=== PATIENT | male | born 1985 | race Caucasian/White ===

== ENCOUNTER 2017-02-22 13:50 | Inpatient (IN) | payer BC, OTHER ==
[~2017-02-22] VITALS: Ht 175.3 cm; Wt 68.0 kg
--- NOTE | 2017-02-22 20:10 | NUR ---
INTAKE ASSESSMENT NOTE BP: 114/77, HR: 76, RR:16, SpO2: 96% T: 97.4, Pain: stomach cramps 7/10. Pt is stable and clear to come onto the unit. Unit protocols were explained regarding medications and vital signs Q4H. Pt verbalized understanding. Will monitor.
[2017-02-22 20:30] VITALS: BP 114/77
--- NOTE | 2017-02-22 20:30 | NUR ---
ADMISSION NOTE Ht: 5'9" Wt: 150 lbs COWS:10, CIWA:7 Pt arrived ambulatory from [facility] Intake to the third floor accompanied by a MERCHANDISING EXECUTION ASSOCIATE at 2017. Pt is a 31 year old male admitted on 02/22/17 for ETOH, Benzo, Heroin and Meth dependency. Pt is full code with NKA. He reports a PMHx of anxiety, depression and shoulder surgery 7 years ago. He is a cigarette smoked of 13 years and reports smoking 15 cigarettes per day. He denies any history of seizures. He reports he has a PCP named Dr. Nettles located in [place], [place]. Pt arrived with supplements and OTC medications. All meds reconciled. He reports his longest period of sobriety was in July 2016 for 48 days. Pt verbalized his last time sober was one month ago for four days. He was recently at [facility] 1.5 months ago for 4 days and then relapsed. He describes his current use as: 1. ETOH ( 6 pack mickeys beer) daily for 1.5 months Last dose: 2 beers on 02/21/17 2. Klonopin 6 mg daily for 1.5 months. Last dose: 2 mg on 02/21/17 3. Heroin IV 3 grams daily for 1.5 months Last dose: 1.5 gram on 02/21/17 4. Methamphetamine IV 0.25 grams daily for 1.5 months Last dose: 0.25 gram IV on 02/21/17 He reports his withdrawal symptoms as: " nausea, stomach cramps, body aches, runny nose and watery eyes." Upon assessment, pt is alert and oriented x4, calm and cooperative. Noted with abdominal cramps, nausea, runny nose, moist eyes and diaphoresis. Speech is soft and audible. Heart rate regular. Pt denies chest pain or SOB. PERRLA, breathing is even and unlabored, lung sounds clear. Abdomen is soft and non distended, bowel sounds present. Last BM (02/21/17) Pt reports BM is regular. Pt's skin is warm dry and intact. Noted with track amos on left lateral forearm. Dry and intact, no bleeding or swelling noted. Also noted with superficial scratches on face related to skin picking. MD aware of pt's admission. Pt oriented to room and unit. Pt safe with bed locked in lowest position, side rails up x2 and call light within reach. Will continue to monitor.
[2017-02-22 20:48] LABS: *AMPHETAMINE, URINE POSITIVE (NEGATIVE); *BARBITURATE, URINE NEGATIVE (NEGATIVE); *CANNABINOID, URINE NEGATIVE (NEGATIVE); *COCCAINE, URINE NEGATIVE (NEGATIVE); *OPIATE, URINE POSITIVE (NEGATIVE); *PHENCYCLIDINE SCREEN,URINE NEGATIVE (NEGATIVE)
[2017-02-22] MEDS ORDERED: MIRALAX 17 GM POWD.PACK PO PRN (21:30)
[2017-02-22] MEDS ORDERED: LORAZEPAM 2 MG/1 ML VIAL IM PRN (21:30)
[2017-02-22] MEDS ORDERED: ACETAMINOPHEN 325 MG TABLET PO PRN (21:30)
[2017-02-22] MEDS ORDERED: METHOCARBAMOL 750 MG TABLET PO PRN (21:30)
[2017-02-22] MEDS ORDERED: MAGNESIUM HYDROXIDE 30 ML LIQUID UDC PO PRN (21:30)
[2017-02-22] MEDS ORDERED: LOPERAMIDE HCL 2 MG CAPSULE PO PRN ×2 (21:30)
[2017-02-22] MEDS ORDERED: BUPRENORPHINE HCL 2 MG TAB.SUBL SL PRN (21:30)
[2017-02-22] MEDS ORDERED: HYDROXYZINE PAMOATE 25 MG CAPSULE PO PRN (21:30)
[2017-02-22] MEDS ORDERED: ONDANSETRON 4 MG/2 ML VIAL IM PRN (21:30)
[2017-02-22] MEDS ORDERED: THIAMINE HCL 200 MG/2 ML VIAL IM ONE (21:30)
[2017-02-22] MEDS ORDERED: IBUPROFEN 600 MG TABLET PO PRN (21:30)
[2017-02-22] MEDS ORDERED: CLONIDINE HCL 0.1 MG TABLET PO PRN (21:30)
[2017-02-22] MEDS ORDERED: LORAZEPAM 1 MG TABLET PO PRN ×2 (21:30)
[2017-02-22] MEDS ORDERED: DICYCLOMINE HCL 20 MG TABLET PO PRN (21:30)
[2017-02-22] MEDS: ONDANSETRON ODT 4 MG TAB.RAPDIS SL PRN (21:48)
[2017-02-22] MEDS ORDERED: LORAZEPAM 1 MG TABLET ONE (21:48)
[2017-02-22] MEDS ORDERED: ONDANSETRON ODT 4 MG TAB.RAPDIS ONE (21:49)
--- NOTE | 2017-02-22 21:50 | NUR ---
PRN ZOFRAN, ONE TIME ORDERS SUBUTEX and ATIVAN Pt complains of nausea. Pt noted with diaphoresis, runny nose, moist eyes, abdominal cramps, and anxiety. COWS:10, CIWA:7. PRN Zofran administered as ordered. One time order of Subutex 4 mg and Ativan 2 mg administered as ordered. Breathing even and unlabored. Will continue to monitor effectiveness of medications.
[2017-02-22 21:52] LABS: BASOPHILS # (AUTO) 0.2 K/uL (0.0-8.0); BASOPHILS % (AUTO) 2.5 % (0.0-2.0); EOSINOPHILS # (AUTO) 0.4 K/uL (0.0-0.7); EOSINOPHILS % (AUTO) 4.2 % (0.0-7.0); HEMATOCRIT 40.3 % (40-50); HEMOGLOBIN 13.7 G/DL (14.0-18.0); LYMPHOCYTES # (AUTO) 1.9 K/uL (20.0-40.0); MEAN CORPUSCULAR HEMOGLOBIN 29.2 UUG (27.0-31.0); MEAN CORPUSCULAR HGB CONC 34 g/dL (32.0-37.0); MONOCYTES % (AUTO) 11.1 % (0.0-11.0); NEUTROPHILS # (AUTO) 5.1 K/uL (1.8-8.9); NEUTROPHILS % (AUTO) 60.2 % (38.5-71.5); PLATELET COUNT (AUTO) 169 K/UL (150-450); RED BLOOD CELL COUNT(AUTO) 4.68 MIL/UL (4.7-6.1); RED CELL DISTRIBUTION WIDTH 13.2 % (11.5-14.5); WHITE BLOOD COUNT (AUTO) 8.6 K/UL (4.0-11.2)
[2017-02-22] MEDS ORDERED: LORAZEPAM 1 MG TABLET PO SCH (22:00)
[2017-02-22] MEDS ORDERED: BUPRENORPHINE HCL 2 MG TAB.SUBL SL SCH (22:00)
[2017-02-22 22:03] LABS: ETHANOL < 3 MG/DL (0-0)
[2017-02-22 22:07] LABS: ALANINE AMINOTRANSFERASE 25 U/L (16-63); ALBUMIN 3.3 g/dL (3.4-5.0); ALKALINE PHOSPHATASE 136 U/L (50-136); ASPARTATE AMINOTRANSFERASE 21 U/L (15-37); BILIRUBIN,TOTAL 0.3 mg/dL (0.2-1.0); CALCIUM 8.7 mg/dL (8.5-10.1); CARBON DIOXIDE 31 mmol/L (21-32); CHLORIDE 102 mmol/L (98-107); CREATININE 0.8 mg/dL (0.6-1.3); GFR 114 mL/min (>60); GLUCOSE 86 mg/dL (74-106); MAGNESIUM 1.8 mg/dL (1.8-2.4); POTASSIUM 4.4 mmol/L (3.5-5.1); SODIUM SERUM 138 mmol/L (136-145); TOTAL PROTEIN, SERUM 6.5 g/dL (6.4-8.2); UREA NITROGEN, BLOOD 8 mg/dL (7-18)
[2017-02-22 22:28] LABS: THYROID STIMULATING HORMONE 0.365 mIU/mL (0.358-3.740)
[2017-02-22 22:29] LABS: HIV-1 p24 ANTIGEN NON REACTIVE (NONREACTIVE); HIV-1/2 ANTIBODY NON REACTIVE (NONREACTIVE)
--- NOTE | 2017-02-22 22:50 | NUR ---
REASSESSMENT Pt reports decrease in nausea, anxiety and withdrawal symptoms. Medications effective as evidenced by decrease in COWS to 8 and CIWA to 6. Breathing even and unlabored. Respirations 16. Will continue to monitor.
[2017-02-23] VITALS: BP 114/72
--- NOTE | 2017-02-23 | NUR ---
COWS/CIWA DEFERRED COWS and CIWA deferred d/t order is Q4H while awake. Pt lying in bed with eyes closed noted to be asleep. Respirations 16, breathing is even and unlabored. Safety measures in place. Will continue to monitor.
[2017-02-23] MEDS ORDERED: CALC500T13 PO (00:27)
[2017-02-23] MEDS ORDERED: DOCU-170 PO (00:27)
[2017-02-23] MEDS ORDERED: NICO1PAT10 TP (00:30)
[2017-02-23] MEDS ORDERED: NA P133E4 RC (00:32)
[2017-02-23] MEDS ORDERED: GLYC15DR OP (00:32)
[2017-02-23] MEDS ORDERED: [UNRECOGNIZED DRUG - OTHER] TP (00:32)
[2017-02-23] MEDS ORDERED: BETA2500 PO (00:33)
[2017-02-23] MEDS ORDERED: MULT-1045 PO (00:34)
[2017-02-23] MEDS ORDERED: ERYT3.5O24 EACHEYE (00:38)
[2017-02-23] MEDS ORDERED: [UNRECOGNIZED DRUG - OTHER] (00:44)
[2017-02-23] MEDS ORDERED: NEOM28.3 TP (00:49)
[2017-02-23] MEDS ORDERED: DIPH28.33 TP (00:49)
[2017-02-23 04:00] VITALS: BP 101/65
--- NOTE | 2017-02-23 07:11 | NUR ---
END OF SHIFT Pt is a 31 year old male admitted on 02/22/17 for ETOH, Benzo, Heroin and Meth dependency. Pt is full code with NKA. He will start a 5 day Ativan and 5 day Subutex taper today 02/23/17. At 2150 pt received PRN Zofran and one time order of Ativan and Subutex. Medications were effective in relieving his withdrawal symptoms. He was able to sleep a total of 6 hrs, Intake: 650 mL, Void: x2, BM: 0, COWS:8, CIWA:6. Pt is alert and oriented x4, breathing is even and unlabored. Pt safe with bed locked in lowest position, side rails up x2 and call light within reach. Endorsed to oncoming nurse.
--- NOTE | 2017-02-23 07:20 | NUR ---
Start of shift note Pt was admitted for benzo, ETOH and opiate dependence and methamphetamine use. Pt has a PMHx of anxiety, depression and a shoulder surgery 7 years ago. Pt relapsed 1.5 months ago. Pt is a full code, is on a regular diet and has NKA. Pt is scheduled to begin a 5 day ativan and 5 day subutex taper today. Pt is currently sleeping in his bed, pt requested to be allowed to sleep at this time. Pt has no complaints at this time. Bed is locked in a low position, call light within reach, side rails up x2. Will continue to monitor pt. All needs addressed at this time.
[2017-02-23 08:00] VITALS: BP 98/63
--- NOTE | 2017-02-23 08:00 | NUR ---
VS assessment Pt reported pain 7/10 to INSTRUCTIONAL LEADER during VS, however at this time, pt is sleeping soundly. Will continue to monitor pt. Bed is locked in a low position, call light within reach. Addendum: 02/23/17 at 0835 by ANDRZEJ CAUSEY RN Amended: Links added.
[2017-02-23] MEDS ORDERED: TUBERCULIN,PURIF.PROT.DERIV. 5 TU/0.1 ML TEST ID ONE (09:00)
--- NOTE | 2017-02-23 09:30 | NUR ---
MD communication Painful lump noted to be on pt's L upper arm at the site of his track amos, Dr Bradshaw notified, Dr Bradshaw to assess the area. Will continue to monitor that pt.
[2017-02-23] MEDS: MULTIVITAMINS,THERAPEUTIC TABLET PO SCH (09:31)
[2017-02-23] MEDS: BUPRENORPHINE HCL 2 MG TAB.SUBL SL SCH ×4 (09:31→21:40)
[2017-02-23] MEDS: LORAZEPAM 1 MG TABLET PO SCH ×4 (09:31→21:40)
[2017-02-23] MEDS: FOLIC ACID 1 MG TABLET PO SCH (09:31)
[2017-02-23] MEDS: THIAMINE HCL 100 MG TABLET PO SCH (09:31)
[2017-02-23 12:00] VITALS: BP 111/67
[2017-02-23] MEDS: ONDANSETRON ODT 4 MG TAB.RAPDIS SL PRN (13:45)
--- NOTE | 2017-02-23 13:45 | NUR ---
PRN administration Pt c/o nausea, administered zofran PRN per MD order. Will continue to monitor pt.
--- NOTE | 2017-02-23 14:15 | NUR ---
Reassessment Pt states that the zofran was effective in relieving his nausea. Will continue to monitor pt.
[2017-02-23 16:00] VITALS: BP 107/69
--- NOTE | 2017-02-23 17:25 | NUR ---
PRN administration Pt c/o dyspepsia, administered PRN maalox per MD order. Will continue to monitor pt.
[2017-02-23] MEDS: MAG HYDROX/AL HYDROX/SIMETH 30 ML LIQUID UDC PO PRN (17:27)
--- NOTE | 2017-02-23 17:55 | NUR ---
Reassessment Pt states that the medication was effective in relieving his dyspepsia.
[2017-02-23] MEDS ORDERED: LIDOCAINE 1%-EPI 1:100,000 20 ML VIAL TP ONE (18:15)
[2017-02-23] MEDS ORDERED: SILVER NITRATE APPLICATOR STICK EACH TP ONE (18:15)
--- NOTE | 2017-02-23 18:45 | NUR ---
Dr Hall on unit Dr Hall performed an I&D to left upper arm. Stated he would like the wound packed daily and an xray of the upper arm d/t pt stating that he broke a 28G needle off in there a few days ago. Pt tolerated well.
--- NOTE | 2017-02-23 19:25 | NUR ---
End of shift note Pt was admitted for benzo, ETOH and opiate dependence and methamphetamine use. Pt has a PMHx of anxiety, depression, and abscess to his left upper arm, and a shoulder surgery 7 years ago. Pt relapsed 1.5 months ago. Pt is a full code, is on a regular diet and has NKA. Pt started a 5 day ativan and 5 day subutex taper today and is tolerating well. Pt has a PRN zofrana and maalox with effectiveness. Dr Hall on unit and ordered: daily wound care: wet to moist packing with a 4x4 gauze and 1/4 dakins solution. Orders entered, unable to enter orders. Pt is currently resting in bed, pt has no further complaints. SBAR report given to oncoming shift. Addendum: 02/23/17 at 1936 by ANDRZEJ CAUSEY RN Pt had a recent COWS of 10 and CIWA of 12 at 1715.
--- NOTE | 2017-02-23 19:26 | NUR ---
Start of shift note Received report from day shift nurse. Pt is a 31 yo male, A+Ox4, presenting to [facility] for ETOH/Benzo/Opiate/Meth dependence. Pt has NKA, is Full Code status, and on regular diet. Pt is on Fall and Seizure precautions. Pt has HX of Anxiety, depression, Shoulder SX, and Left arm I&D. Pt is on 5 day Ativan and Subutex tapers, tolerated well. No s/s of distress noted at this time. Respirations even and unlabored. Will continue to monitor.
[2017-02-23 20:12] VITALS: BP 108/67
[2017-02-23] MEDS: DOXYCYCLINE HYCLATE 100 MG TABLET PO SCH (21:39)
[2017-02-23] MEDS: LACTOBACILLUS RHAMNOSUS GG 1 EACH CAPSULE PO SCH (21:40)
--- NOTE | 2017-02-23 23:05 | NUR ---
Dr. Hall notified about X- Ray results: patient has foreign body in antecubital region at 2305 pm. NNO. Addendum: 02/23/17 at 2330 by ANDREW PURDY RN notified at 2305.
[2017-02-24 00:15] VITALS: BP 129/76
[2017-02-24 04:34] VITALS: BP 129/76
--- NOTE | 2017-02-24 07:10 | NUR ---
End of shift note Pt is a 31 yo male, A+Ox4, presenting to [facility] for ETOH/Benzo/Opiate/Meth dependence. Pt has NKA, is Full Code status, and on regular diet. Pt is on Fall and Seizure precautions. Pt has HX of Anxiety, depression, Shoulder SX, and Left arm I&D. Pt is on 5 day Ativan and Subutex tapers, tolerated well. Pt slept for a total of 8 HRS. Last COWS: 3 and Last CIWA: 3 @0400. No s/s of distress noted at this time. Respirations even and unlabored. Will endorse to day shift nurse.
--- NOTE | 2017-02-24 07:15 | NUR ---
Start of shift note Pt was admitted for benzo, ETOH and opiate dependence and methamphetamine use. Pt is a full code, is on a regular diet and has NKA. Pt has a PMHx of anxiety, depression, and abscess to his left upper arm, and a shoulder surgery 7 years ago. Pt relapsed 1.5 months ago. Pt is on day 2 a 5 day ativan and 5 day subutex taper today and is tolerating well. Pt has started antibiotics for his abscess and is tolerating well. Pt is currently resting in his bed, has no complaints at this time. Will continue to monitor pt. All needs addressed at this time.
[2017-02-24 08:00] VITALS: BP 100/69
[2017-02-24 09:04] LABS: FOLIC ACID 11.8 NG/ML (8.6-58.9)
[2017-02-24] MEDS: LACTOBACILLUS RHAMNOSUS GG 1 EACH CAPSULE PO SCH ×2 (09:05→21:05)
[2017-02-24] MEDS: THIAMINE HCL 100 MG TABLET PO SCH (09:05)
[2017-02-24] MEDS: LORAZEPAM 1 MG TABLET PO SCH ×3 (09:06→21:13)
[2017-02-24] MEDS: FOLIC ACID 1 MG TABLET PO SCH (09:06)
[2017-02-24] MEDS: ONDANSETRON ODT 4 MG TAB.RAPDIS SL PRN ×2 (09:06→21:05)
[2017-02-24] MEDS: DOXYCYCLINE HYCLATE 100 MG TABLET PO SCH ×2 (09:06→21:04)
[2017-02-24] MEDS: MULTIVITAMINS,THERAPEUTIC TABLET PO SCH (09:06)
[2017-02-24] MEDS: BUPRENORPHINE HCL 2 MG TAB.SUBL SL SCH ×3 (09:06→21:05)
--- NOTE | 2017-02-24 09:06 | NUR ---
PRN administration Pt c/o nausea, administered zofran PRN per MD order. Will continue to monitor pt.
[2017-02-24] MEDS: SODIUM HYPOCHLORITE 0.25% 480 ML BOTTLE TOP SCH (09:18)
[2017-02-24 09:22] LABS: CALCIUM 9.1 mg/dL (8.5-10.1); CREATININE 0.8 mg/dL (0.6-1.3); MAGNESIUM 1.8 mg/dL (1.8-2.4); PHOSPHOROUS 2.9 mg/dL (2.5-4.9); POTASSIUM 4.1 mmol/L (3.5-5.1)
--- NOTE | 2017-02-24 09:36 | NUR ---
Reassessment Pt states that the medication was effective in reducing his nausea, pt states that he has no nausea at this time.
[2017-02-24] MEDS ORDERED: BUPRENORPHINE HCL 2 MG TAB.SUBL SL ONE (11:30)
[2017-02-24 12:00] VITALS: BP 110/73
--- NOTE | 2017-02-24 12:15 | NUR ---
One time subutex Dr Bradshaw ordered a 1x subutex. Pt has a COWS of 13. Will continue to monitor pt. All other needs addressed at this time.
--- NOTE | 2017-02-24 12:45 | NUR ---
Reassessment Pt is currently sleeping in bed. Will continue to monitor pt. All needs addressed at this time.
[2017-02-24 13:06] LABS: HCV AB <0.1 s/co ratio (0.0-0.9); HEPATITIS B CORE AB, IgM Negative (Negative); HEPATITIS B SURFACE AG Negative (Negative)
[2017-02-24] MEDS: BACLOFEN 10 MG TABLET PO SCH ×2 (14:23→21:05)
[2017-02-24] MEDS: GABAPENTIN 300 MG CAPSULE PO SCH ×2 (14:23→21:04)
[2017-02-24] MEDS: DICYCLOMINE HCL 20 MG TABLET PO SCH ×2 (14:24→21:05)
[2017-02-24 16:45] VITALS: BP 104/65
[2017-02-24] MEDS: KETOROLAC TROMETHAMINE 30 MG INJ IM PRN (16:45)
--- NOTE | 2017-02-24 16:45 | NUR ---
PRN administration Pt reports a pain level of 8/10 in left arm and generalized body aches. Administered PRN toradol to R gluteal area. Pt tolerated well. Will continue to monitor pt.
--- NOTE | 2017-02-24 17:15 | NUR ---
Reassessment Pt reports that his pain level is 4/10 in the form of generalized body aches, pt states that he is comfortable and does not want any further medications. Will continue to monitor pt. All needs addressed at this time. Will continue to monitor pt.
--- NOTE | 2017-02-24 19:05 | NUR ---
End of shift note Pt was admitted for benzo, ETOH and opiate dependence and methamphetamine use. Pt is a full code, is on a regular diet and has NKA. Pt has a PMHx of anxiety, depression, and abscess to his left upper arm and is currently taking PO antibiotics for, and a shoulder surgery 7 years ago. Pt relapsed 1.5 months ago. Pt is on day 2 a 5 day ativan and 5 day subutex taper today and is tolerating well. Pt had a onetime extra dose of subutex to manage his withdrawal s/s and was started on PRN toradol for the pain in his left arm and generalized body aches. Pt was withdrawn during the shift, and rarely left his room. Pt states that he does not feel "up to leaving my room, I just want to stay in my bed". Pt had a poor appetite during most of the shift, pt drank 1800ml of fluids, had 2 urines and 1 BM. Encouraged pt to speak to therapist and psychiatrist. Pt verbalized his understanding. All other needs addressed at this time. Will endorse SBAR to oncoming shift. .
[2017-02-24 20:00] VITALS: BP 107/68
--- NOTE | 2017-02-24 20:00 | NUR ---
START OF SHIFT NOTE RECEIVED PATIENT IN THE ROOM, RESTING. PATIENT REPORTS ANXIETY, NAUSEA BUT NO EMESIS, ABDOMINAL CRAMPING, STUFFY NOSE, SWEATING AND SHAKING. PATIENT STATES APPETITE IS GETTING BETTER AND DRINKING FLUIDS WELL. PATIENT C/O LEFT ARM PAIN (POST I & D) 06/01. PATIENT ON ANTIBIOTIC THERAPY WITH NO ADVERSE REACTION FOR POST I & DON LEFT ARM . ENCOURAGE FLUIDS. RECEIVED REPORT FROM DAY SHIFT NURSE. PATIENT IS A 31 YEAR OLD MALE, ADMITTED FOR ETOH/KLONOPIN,HEROIN AND METH DEPENDENCE. PATIENT IS ON 2ND DAY OF 5 DAY ATIVAN AND 5 DAY SUBUTEX TAPER. PATIENT RELAPSED 1.5 MONTHS AGO. PATIENT IS ON FALL/SEIZURE PRECAUTION . PATIENT WAS GIVEN ONE TIME SUBUTEX , PRN ZOFRAN AND TORADOL IM. LAST COWS AND CIWA 4. SAFETY MEASURES IN PLACE. CALL LIGHT IN REACH. WILL CONTINUE TO MONITOR.
--- NOTE | 2017-02-24 21:05 | NUR ---
PRN ZOFRAN ADMINISTRATION PATIENT C/O NAUSEA BUT NO EMESIS. PRN ZOFRAN GIVEN. WILL MONITOR FOR EFFECTIVENESS
--- NOTE | 2017-02-24 21:13 | NUR ---
PRN MOTRIN ADMINISTRATION PATIENT C/O PAIN ON LEFT ARM 06/01. PRN MOTRIN GIVEN. WILL MONITOR FOR EFFECTIVENESS
--- NOTE | 2017-02-24 22:05 | NUR ---
PRN ZOFRAN RE-ASSESSMENT PATIENT STATES ZOFRAN HELPFUL AND EFFECTIVE. NAUSEA CEASED. WILL CONTINUE TO MONITOR.
--- NOTE | 2017-02-24 22:13 | NUR ---
PRN MOTRIN RE-ASSESSMENT MOTRIN HELPFUL . PAIN LEVEL 2/10. TOLERABLE. WILL CONTINUE TO MONITOR.
--- NOTE | 2017-02-24 22:18 | NUR ---
PRN BENADRYL ADMINISTRATION PATIENT REQUESTS FOR SLEEP AID. PRN BENADRYL GIVEN. WILL MONITOR FOR EFFECTIVENESS
[2017-02-24] MEDS: diphenhydrAMINE 50 MG CAPSULE PO PRN (22:48)
[2017-02-25] VITALS: BP 122/60
--- NOTE | 2017-02-25 00:14 | NUR ---
PRN TYLENOL ADMINISTRATION PATIENT C/O OF PAIN ON LEFT ARM (S/P I & D) 05/01 . PRN TYLENOL GIVEN. WILL MONITOR FOR EFFECTIVENESS
[2017-02-25] MEDS: KETOROLAC TROMETHAMINE 30 MG INJ IM PRN ×3 (00:52→21:17)
--- NOTE | 2017-02-25 00:52 | NUR ---
PRN TYLENOL/RE-ASSESSMENT/PRN TORADOL IM ADMINISTRATION PATIENT STATES PRN TYLENOL INEFFECTIVE. PAIN STILL 05/01. PRN TORADOL IM GIVEN. WILL MONITOR FOR EFFECTIVENESS
--- NOTE | 2017-02-25 01:52 | NUR ---
PRN TORADOL RE-ASSESSMENT PATIENT IN BED WITH EYES CLOSED. NO S/S OF DISTRESS. RESPIRATION EVEN AND UNLABORED. WILL CONTINUE TO MONITOR.
--- NOTE | 2017-02-25 02:00 | NUR ---
PRN YOANADRYL RE-ASSESSMENT PATIENT IN BED ASLEEP. RESPIRATION EVEN AND UNLABORED. NO S/S OF DISTRESS. WILL CONTINUE TO MONITOR.
[2017-02-25 04:00] VITALS: BP 99/56
--- NOTE | 2017-02-25 07:00 | NUR ---
Start of Shift Endorsement received from nightshift nurse. Pt is a 31 y/o male admitted for alcohol, klonopin and Heroin dependence. Pt has been placed on a 5 day Ativan and 5 day Subutex taper. Pt is tolerating the taper and withdrawing moderately at this time AEB COWS 8, CIWA 7 at 1999. Pt received PRN Motrin, Bentyl, Tylenol and Toradol during nightshift. Pt reports sleeping 5 hours. VS WNL, Full Code. Pt had a debridement performed on a abscess on his left arm. Wound care will be performed during day shift. PT is alert and oriented x4. Pt is in STABLE condition at this time. Remains compliant with medication and diet regimen. All needs have been met, All safety measures in place per hospital policy. Bed in lowest position, side rails up x2, call-light within reach. Will continue to monitor
--- NOTE | 2017-02-25 07:22 | NUR ---
END OF SHIFT NOTE MONITORED PATIENT THROUGHOUT THE NIGHT. PATIENT REMAIN ALERT AND ORIENTED X4. RESPIRATION EVEN AND UNLABORED PATIENT COMPLIANT WITH MEDICATION AND TREATMENT PLAN. PATIENT REMAIN FREE FROM INJURY. PATIENT ATTENDED GROUPS. CONTINUE ON ATIVAN AND SUBUTEX TAPER WITH NO ADVERSE REACTIONS. PATIENT REPORTED ANXIETY, NAUSEA BUT NO EMESIS, ABDOMINAL CRAMPING, STUFFY NOSE, SWEATING AND SHAKING DURING SHIFT. PATIENT STATES WITH GOOD APPETITE , DRINKING FLUIDS WELL. PATIENT C/O LEFT ARM PAIN (POST I & D). PATIENT ON ANTIBIOTIC THERAPY WITH NO ADVERSE REACTION. ENCOURAGE FLUIDS. PATIENT WAS GIVEN PRN ZOFRAN AT 2105, EFFECTIVE. MOTRIN AT 2113, BENADRYL FOR SLEEP AT 2248, TYLENOL AT 0014, INEFFECTIVE. TORADOL IM GIVEN AND EFFECTIVE. PATIENT IS ON FALL/SEIZURE PRECAUTION .SAFETY MEASURES IN PLACE. CALL LIGHT IN REACH. WILL CONTINUE TO MONITOR. SLEPT 5 HOURS. FLUID INTAKE OF 1,250 ML. VOIDED X 2 AND NO BM. LAST COWS 2 AND CIWA 1.
[2017-02-25 08:00] VITALS: BP 99/56
[2017-02-25] MEDS: DICYCLOMINE HCL 20 MG TABLET PO SCH ×3 (08:19→20:38)
[2017-02-25] MEDS: THIAMINE HCL 100 MG TABLET PO SCH (08:19)
[2017-02-25] MEDS: LORAZEPAM 1 MG TABLET PO SCH ×3 (08:20→17:00)
[2017-02-25] MEDS: GABAPENTIN 300 MG CAPSULE PO SCH ×3 (08:20→20:38)
[2017-02-25] MEDS: LACTOBACILLUS RHAMNOSUS GG 1 EACH CAPSULE PO SCH ×2 (08:20→21:15)
[2017-02-25] MEDS: MULTIVITAMINS,THERAPEUTIC TABLET PO SCH (08:20)
[2017-02-25] MEDS: BACLOFEN 10 MG TABLET PO SCH ×3 (08:20→20:38)
[2017-02-25] MEDS: DOXYCYCLINE HYCLATE 100 MG TABLET PO SCH ×2 (08:20→20:38)
[2017-02-25] MEDS: FOLIC ACID 1 MG TABLET PO SCH (08:21)
[2017-02-25] MEDS: SODIUM HYPOCHLORITE 0.25% 480 ML BOTTLE TOP SCH (08:48)
[2017-02-25] MEDS ORDERED: BUPRENORPHINE HCL 2 MG TAB.SUBL SL SCH (09:00)
[2017-02-25 12:00] VITALS: BP 102/63
--- NOTE | 2017-02-25 14:50 | NUR ---
PRN Toradol Administered PRN Toradol 30mg for reported 8/10 back pain by pt. Will re-assess.
[2017-02-25] MEDS: BUPRENORPHINE HCL 2 MG TAB.SUBL SL SCH ×2 (15:00→20:40)
[2017-02-25 15:24] LABS: BASOPHILS # (AUTO) 0.2 K/uL (0.0-8.0); BASOPHILS % (AUTO) 2.6 % (0.0-2.0); EOSINOPHILS # (AUTO) 0.2 K/uL (0.0-0.7); EOSINOPHILS % (AUTO) 2.3 % (0.0-7.0); HEMATOCRIT 44.9 % (40-50); HEMOGLOBIN 15.4 G/DL (14.0-18.0); LYMPHOCYTES # (AUTO) 2.5 K/uL (20.0-40.0); LYMPHOCYTES % (AUTO) 31.3 % (20.5-51.5); MEAN CORPUSCULAR HEMOGLOBIN 29.5 UUG (27.0-31.0); MEAN CORPUSCULAR HGB CONC 34 g/dL (32.0-37.0); MEAN CORPUSCULAR VOLUME 86.3 FL (82.0-92.0); MONOCYTES # (AUTO) 0.7 K/uL (2.0-10.0); MONOCYTES % (AUTO) 8.8 % (0.0-11.0); NEUTROPHILS # (AUTO) 4.3 K/uL (1.8-8.9); PLATELET COUNT (AUTO) 197 K/UL (150-450); RED CELL DISTRIBUTION WIDTH 13.4 % (11.5-14.5); WHITE BLOOD COUNT (AUTO) 7.9 K/UL (4.0-11.2)
--- NOTE | 2017-02-25 15:30 | NUR ---
Medication Re-assessment Medication was effective, Pt reports 2/10 pain at this time.
[2017-02-25 15:37] LABS: BILIRUBIN,TOTAL 0.2 mg/dL (0.2-1.0); CALCIUM 8.6 mg/dL (8.5-10.1); POTASSIUM 4.1 mmol/L (3.5-5.1); TOTAL PROTEIN, SERUM 6.4 g/dL (6.4-8.2)
[2017-02-25 16:00] VITALS: BP 98/58
--- NOTE | 2017-02-25 17:51 | NUR ---
Ativan Dose Held Ativan 1mg was held due to pt being asleep and appeared sedated. Dr. Carrera has been advised and dose will be rescheduled.
[2017-02-25] MEDS ORDERED: LORAZEPAM 1 MG TABLET PO ONE ×2 (19:15→23:15)
--- NOTE | 2017-02-25 19:38 | NUR ---
End of Shift Endorsement given to nightshift nurse. Pt is a 31 y/o male admitted for alcohol, klonopin and Heroin dependence. Pt has been placed on a 5 day Ativan and 5 day Subutex taper. Pt is tolerating the taper and withdrawing moderately at this time AEB COWS 4, CIWA 3 at 1600. Pt received PRN Toradol at 1500 for 8/10 pain, medication was effective. Pt participated in group and activities. Wound care was performed at 1300, picture of the wound taken and placed in chart, wound culture collected. Intake: 1640, Void x2, BM x0. VS WNL, Full Code. Pt had a debridement performed on a abscess on his left arm. Wound care will be performed during day shift. PT is alert and oriented x4. Pt is in STABLE condition at this time. Remains compliant with medication and diet regimen. All needs have been met, All safety measures in place per hospital policy. Bed in lowest position, side rails up x2, call-light within reach. Will continue to monitor
[2017-02-25 20:00] VITALS: BP 111/75
--- NOTE | 2017-02-25 20:00 | NUR ---
START OF SHIFT NOTE RECEIVED RESIDENT IN HIS ROOM. PATIENT ALERT AND ORIENTED X 4. RESPIRATION EVEN AND UNLABORED. PATIENT REPORTS ANXIETY, AGITATED. IRRITABLE, TREMORS , NAUSEA BUT NO EMESIS AND ABDOMINAL CRAMPING. PATIENT C/O 8/10 PAIN ON LEFT ARM. RECEIVED REPORT FROM DAY SHIFT NURSE. PATIENT IS A 31 YEAR OLD MALE, ADMITTED FOR ETOH/KLONOPIN/HEROIN/METH DEPENDENCE. PATIENT IS ON 3RD DAY OF HIS 5 DAY ATIVAN AND 5 DAY SUBUTEX TAPER. PATIENT IS FULL CODE, REGULAR DIET AND NO KNOWN ALLERGY. PATIENT REPORTS PMH OF ANXIETY, DEPRESSION AND SHOULDER SURGERY (7 YEARS AGO). ON FALL/SEIZURE PRECAUTION. PATIENT ON ANTIBIOTIC FOR LEFT ARM (POST I& D WITH NO ADVERSE REACTION. WOUND DRESSING CHANGE DONE AND PICTURE DONE. PRN TORADOL IM WAS GIVEN DURING THE DAY. LAST COWS 3 AND CIWA 4. SAFETY MEASURES IN PLACE. CALL LIGHT IN REACH. WILL CONTINUE TO MONITOR.
[2017-02-25] MEDS: ONDANSETRON ODT 4 MG TAB.RAPDIS SL PRN (21:15)
--- NOTE | 2017-02-25 22:15 | NUR ---
PRN ZOFRAN /TORADOL IM ADMINISTRATION PATIENT C/O NAUSEA BUT NO EMESIS, PAIN ON LEFT ARM 06/01. PRN ZOFRAN AND TORADOL IM GIVEN. WILL MONITOR FOR EFFECTIVENESS
--- NOTE | 2017-02-25 22:45 | NUR ---
PRN ZOFRAN RE-ASSESSMENT PRN ZOFRAN EFFECTIVE. NAUSEA CEASED. WILL CONTINUE TO MONITOR.
--- NOTE | 2017-02-25 23:15 | NUR ---
PRN TORADOL IM RE-ASSESSMENT PER PATIENT TORADOL IS HELPFUL, PAIN LEVEL IS 5 AT THIS TIME, TOLERABLE AND IT'S GETTING BETTER. WILL CONTINUE TO MONITOR.
[2017-02-26] VITALS: BP 92/60
--- NOTE | 2017-02-26 00:26 | NUR ---
PRN Benadryl reassessment PRN Benadryl effective. Pt is lying in bed resting with eyes closed. Respirations even and unlabored. Bed is down with call light in reach.
[2017-02-26 04:00] VITALS: BP 95/57
--- NOTE | 2017-02-26 07:12 | NUR ---
END OF SHIFT NOTE PATIENT REMAIN ALERT AND ORIENTED X 4. RESPIRATION EVEN AND UNLABORED. PATIENT REPORTED ANXIETY, AGITATED. IRRITABLE, TREMORS AND ABDOMINAL CRAMPING DURING SHIFT. PATIENT C/O 8 PAIN ON LEFT ARM. PATIENT WAS GIVEN PRN ZOFRAN AT 2215 FOR NAUSEA BUT NO EMESIS AND TORADOL IM AT 7 FOR LEFT ARM PAIN (POST I & D) 06/01. ALL MEDICATION EFFECTIVE. PATIENT IS ON 3RD DAY OF HIS 5 DAY ATIVAN AND 5 DAY SUBUTEX TAPER, TOLERATED WELL NO ADVERSE REACTION. ON FALL/SEIZURE PRECAUTION. PATIENT ON ANTIBIOTIC FOR LEFT ARM (POST I& D WITH NO ADVERSE REACTION. ENCOURAGE FLUIDS. PATIENT COMPLIANT WITH MEDICATION AND TREATMENT PLAN. SAFETY MEASURES IN PLACE. CALL LIGHT IN REACH. WILL CONTINUE TO MONITOR. SLEPT 6 HOURS. FLUID INTAKE 500 ML.VOIDED X 1 . NO BM. LAST COWS 1.
--- NOTE | 2017-02-26 07:50 | NUR ---
START OF SHIFT NOTE Receive report from night nurse, 31 year old male admitted for ETOH/BENZO/Opioid dependence. Pt cont on a 5 day Ativan and 5 day Subutex taper. Pt is also cont with Po antibiotic for left arm post I&D. Per endorsement pt received PRN medications effective. Last COWS-1, CIWA -1, Slept for 8 hours. Received pt alert awake oriented x4, Breathing normal no SOB noted. Respiration even and unlabored, lungs clear upon auscultation, abdomen soft and non- distended. Pt denies nausea, vomiting and diarrhea. Patient denies SI/HI. Safety measures in place. Call light kept within reach. Will continue to monitor.
[2017-02-26 08:00] VITALS: BP 108/65
[2017-02-26] MEDS: GABAPENTIN 300 MG CAPSULE PO SCH ×3 (09:29→21:18)
[2017-02-26] MEDS: THIAMINE HCL 100 MG TABLET PO SCH (09:29)
[2017-02-26] MEDS: MULTIVITAMINS,THERAPEUTIC TABLET PO SCH (09:29)
[2017-02-26] MEDS: FOLIC ACID 1 MG TABLET PO SCH (09:29)
[2017-02-26] MEDS: LACTOBACILLUS RHAMNOSUS GG 1 EACH CAPSULE PO SCH ×2 (09:29→21:18)
[2017-02-26] MEDS: DICYCLOMINE HCL 20 MG TABLET PO SCH ×3 (09:29→21:17)
[2017-02-26] MEDS: DOXYCYCLINE HYCLATE 100 MG TABLET PO SCH ×2 (09:29→21:17)
[2017-02-26] MEDS: BACLOFEN 10 MG TABLET PO SCH ×3 (09:29→21:18)
[2017-02-26] MEDS: BUPRENORPHINE HCL 2 MG TAB.SUBL SL SCH ×3 (09:30→21:19)
[2017-02-26] MEDS: SODIUM HYPOCHLORITE 0.25% 480 ML BOTTLE TOP SCH (09:30)
[2017-02-26] MEDS: LORAZEPAM 1 MG TABLET PO SCH ×3 (09:30→21:17)
[2017-02-26] MEDS: KETOROLAC TROMETHAMINE 30 MG INJ IM PRN ×2 (09:48→21:20)
--- NOTE | 2017-02-26 09:48 | NUR ---
PRN TORADOL Pt c/o left arm pain 06/01, administered PRN Toradol 30mg IM as ordered. Will cont to monitor and re-assess.
--- NOTE | 2017-02-26 10:18 | NUR ---
Re-assessment Pt reported medication was effective pain decreased to 2/10.
[2017-02-26 12:00] VITALS: BP 113/75
[2017-02-26 16:00] VITALS: BP 110/72
--- NOTE | 2017-02-26 18:47 | NUR ---
PRN VISTARIL Pt c/o anxiety, agitation administered PRN Vistaril 25mg Po as ordered. Will cont to monitor and reassess.
--- NOTE | 2017-02-26 18:53 | NUR ---
END OF SHIFT NOTE Gave report to night nurse, 31 year old male admitted for ETOH/BENZO/Opioid dependence. Pt cont on a 5 day Ativan and 5 day Subutex taper tolerating well. Pt is also cont with Po antibiotic for left arm post I&D no s/s of adverse reaction noted. Encourage Po fluids as tolerated. Treatment done on left arm no s/s of infection noted. Pt received PRN for headache effective. Last CIWA-3, COWS-3. Pt attended groups and activities. Pt remained compliant with treatment and medications. Vital signs remained stable. Safety measures in place, call light within reach. Will endorse pt to night nurse in stable condition.
[2017-02-26 20:00] VITALS: BP 107/69
--- NOTE | 2017-02-26 20:05 | NUR ---
START OF SHIFT Received report from day shift nurse. Pt attended a group meeting and returned to his room after. He is a 31 yo male admitted to [facility] on 02/22 for ETOH BZD, and opiate dependence. He has a PMH of anxiety, depression, shoulder surgery. Pt. had an abscess to the right upper arm on admission with I&D on 02/25. Dressing is clean, dry, and intact. Oral abx ordered. On admission he admitted to drinking 6 rizwana's beers per day, using klonopin 6mg per day, heroin IV 3 grams per day, and meth 0.25 grams per day. 5 day Ativan and 5 day Subutex started 02/23. He reports anxiety, nausea, right upper arm pain r/t abscess with cellulitis. Pt states that PRN Vistaril administered during the day was not effective at relieving his anxiety. Tapers due tonight. Fall and seizure precautions in place. Bed is down with call light in reach. Addendum: 02/27/17 at 0316 by JOSSIE GILMORE RN Correction: Pt's abscess is on the left upper arm.
[2017-02-26] MEDS: ONDANSETRON ODT 4 MG TAB.RAPDIS SL PRN (21:23)
--- NOTE | 2017-02-26 21:24 | NUR ---
PRN Zofran and Toradol IM administration Pt c/o nausea and right arm abscess site pain 07/02. PRN Zofran and Toradol IM administered. Addendum: 02/27/17 at 0317 by JOSSIE GILMORE RN Correction: Abscess is on the left arm.
--- NOTE | 2017-02-26 22:24 | NUR ---
PRN Zofran and Toradol reassessment PRN Zofran effective. Pt reports relief of nausea. PRN Toradol mildly effective. Pt states his pain level at the left arm abscess site has decreased to 8/10. He requested a cold pack when he goes to sleep.
[2017-02-26] MEDS: diphenhydrAMINE 50 MG CAPSULE PO PRN (23:26)
--- NOTE | 2017-02-26 23:26 | NUR ---
PRN Benadryl administration Pt c/o inability to sleep. PRN Benadryl administered.
--- NOTE | 2017-02-26 23:30 | NUR ---
Nursing Note Pt provided with cold pack for left arm abscess site pain. Pillow placed under left arm for support.
[2017-02-27] VITALS: BP 107/69
--- NOTE | 2017-02-27 04:00 | NUR ---
0400 Vitals refused. COWS and CIWA deferred Pt refused to be woken for 0400 vitals. Respirations even and unlabored. COWS and CIWA ordered Q4HWA.
--- NOTE | 2017-02-27 07:13 | NUR ---
END OF SHIFT Report provided to day shift nurse. Pt is lying in bed resting. He is a 31 yo male admitted to [facility] on 02/22 for ETOH BZD, and opiate dependence. He is A&O x4 and ambulatory. NKA, full code, and regular diet. He has a PMH of anxiety, depression, shoulder surgery. I&D of left arm abscess performed on 02/25. He is ordered oral abx. On admission he admitted to drinking beer a 6 pack per day, using klonopin 6mg per day, heroin IV 3 grams per day, and meth 0.25 grams per day. 5 day Ativan and 5 day Subutex started 02/23. PRN Toradol, Zofran, and Benadryl administered. Last COWS 3 and CIWA 3. He drank 1300mL and slept for 6 hours. Fall and seizure precautions in place. Bed is down with call light in reach.
--- NOTE | 2017-02-27 07:50 | NUR ---
START OF SHIFT NOTE Receive report from night nurse, 31 year old male admitted for ETOH/BENZO/Opioid dependence. Pt cont on a 5 day Ativan and 5 day Subutex taper. Pt is also cont with Po antibiotic for left arm post I&D. Per endorsement pt received PRN Toradol Zofran, Benadryl medications effective. Last COWS-3, CIWA -3, Slept for 6 hours. Received pt alert awake oriented x4, Breathing normal no SOB noted. Respiration even and unlabored, lungs clear upon auscultation, abdomen soft and non-distended. Pt denies nausea, vomiting and diarrhea. Patient denies SI/HI. Safety measures in place. Call light kept within reach. Will continue to monitor.
[2017-02-27 08:00] VITALS: BP 110/62
[2017-02-27] MEDS: GABAPENTIN 300 MG CAPSULE PO SCH ×3 (08:34→20:55)
[2017-02-27] MEDS: BUPRENORPHINE HCL 2 MG TAB.SUBL SL SCH ×2 (08:34→20:55)
[2017-02-27] MEDS: LORAZEPAM 1 MG TABLET PO SCH ×2 (08:34→20:53)
[2017-02-27] MEDS: DOXYCYCLINE HYCLATE 100 MG TABLET PO SCH ×2 (08:34→20:55)
[2017-02-27] MEDS: SODIUM HYPOCHLORITE 0.25% 480 ML BOTTLE TOP SCH (08:34)
[2017-02-27] MEDS: DICYCLOMINE HCL 20 MG TABLET PO SCH ×3 (08:34→20:54)
[2017-02-27] MEDS: FOLIC ACID 1 MG TABLET PO SCH (08:34)
[2017-02-27] MEDS: BACLOFEN 10 MG TABLET PO SCH ×3 (08:34→20:54)
[2017-02-27] MEDS: THIAMINE HCL 100 MG TABLET PO SCH (08:34)
[2017-02-27] MEDS: MULTIVITAMINS,THERAPEUTIC TABLET PO SCH (08:34)
[2017-02-27] MEDS: KETOROLAC TROMETHAMINE 30 MG INJ IM PRN (10:50)
--- NOTE | 2017-02-27 10:50 | NUR ---
PRN TORADOL Pt c/o left arm pain 06/01, administered PRN Toradol 30mg IM as ordered. Will cont to monitor and re-assess.
--- NOTE | 2017-02-27 11:20 | NUR ---
REASSESSMENT Pt reported medication was effective pain decreased to 2/10.
[2017-02-27 12:00] VITALS: BP 114/56
[2017-02-27] MEDS: ACETAMINOPHEN 325 MG TABLET PO SCH ×2 (14:32→20:55)
[2017-02-27] MEDS: ONDANSETRON ODT 4 MG TAB.RAPDIS SL PRN ×2 (15:11→23:27)
--- NOTE | 2017-02-27 15:11 | NUR ---
PRN ZOFRAN ADMINISTRATION Pt c/o nausea no emesis present. PRN Zofran give as ordered. Will cont to monitor for effectiveness.
[2017-02-27] MEDS: ESCITALOPRAM OXALATE 10 MG TABLET PO SCH (15:17)
--- NOTE | 2017-02-27 15:17 | NUR ---
NEW ORDER Pt was seen by psychiatrist with new order for Lexapro 10mg Po. Medication given as ordered.
--- NOTE | 2017-02-27 15:41 | NUR ---
REASSESSMENT Pt reported medication effective, nausea subside.
[2017-02-27 16:00] VITALS: BP 115/77
--- NOTE | 2017-02-27 18:57 | NUR ---
END OF SHIFT NOTE Gave report to night nurse, 31 year old male admitted for ETOH/BENZO/Opioid dependence. Pt cont on a 5 day Ativan and 5 day Subutex taper tolerating well. Pt is also cont with Po antibiotic for left arm post I&D no s/s of adverse reaction noted. Encourage Po fluids as tolerated. Treatment done on left arm no s/s of infection noted. Pt received PRN medications effective. Pt attended groups and activities. Pt remained compliant with treatment and medications. Treatment done on left arm x2 no s/s of bleeding no swelling noted. Vital signs remained stable. Last COWS-3, CIWA-3. Safety measures in place, call light within reach. Will endorse pt to night nurse in stable condition.
[2017-02-27 20:00] VITALS: BP 106/72
[2017-02-27] MEDS ORDERED: KETOROLAC TROMETHAMINE 60 MG INJ IM ONE (20:00)
--- NOTE | 2017-02-27 20:05 | NUR ---
START OF SHIFT Received report from day shift nurse. Pt attended a group meeting and returned to his room after. He is a 31 yo male admitted to [facility] on 02/22 for ETOH BZD, and opiate dependence. He has a PMH of anxiety, depression, shoulder surgery. Pt. had an abscess to the right upper arm on admission with I&D on 02/25. Dressing is clean, dry, and intact. Oral abx ordered. On admission he admitted to drinking 6 rizwana's beers per day, using klonopin 6mg per day, heroin IV 3 grams per day, and meth 0.25 grams per day. 5 day Ativan and 5 day Subutex started 02/23. He reports anxiety, chills, and right arm pain r/t abscess with I&D. Pt is cooperative with treatment. Tapers due tonight. Fall and seizure precautions in place. Bed is down with call light in reach. Addendum: 02/28/17 at 0627 by JOSSIE GILMORE RN Abscess is located on left upper arm.
--- NOTE | 2017-02-27 20:55 | NUR ---
One Time Toradol Orders received and carried out for one time Toradol. Pt's pain level is 9/10 on left arm abscess site.
[2017-02-27] MEDS ORDERED: NAPROXEN 500 MG TABLET PO SCH (21:00)
--- NOTE | 2017-02-27 21:55 | NUR ---
One Time Toradol reassessment One Time Toradol effective. Pt's pain level decreased to 3/10.
[2017-02-27 23:00] VITALS: BP 116/73
[2017-02-27] MEDS: diphenhydrAMINE 50 MG CAPSULE PO PRN (23:01)
--- NOTE | 2017-02-27 23:02 | NUR ---
PRN Clonidine and Benadryl Pt reports feeling anxious and unable to fall asleep. He cannot sit still in bed. PRN Clonidine and Benadryl administered.
[2017-02-27] MEDS: MAG HYDROX/AL HYDROX/SIMETH 30 ML LIQUID UDC PO PRN (23:27)
--- NOTE | 2017-02-27 23:30 | NUR ---
PRN Zofran and Mylanta Pt reports nausea without vomiting and acid reflux. PRN Zofran and Mylanta administered.
[2017-02-28] VITALS: BP 107/69
--- NOTE | 2017-02-28 00:05 | NUR ---
PRN Clonidine, Benadryl, Zofran, and Mylanta reassessment PRN Clonidine, Benadryl, Zofran, and Mylanta effective. Pt reports feeling more relaxed and like he will fall asleep soon. He also reports relief of nausea and acid reflux. He is lying comfortably in bed and appears tired.
--- NOTE | 2017-02-28 04:00 | NUR ---
0400 Vitals refused. COWS and CIWA deferred Pt refused to be woken for 0400 vitals. Respirations even and unlabored. COWS and CIWA ordered Q4HWA.
--- NOTE | 2017-02-28 07:13 | NUR ---
END OF SHIFT Report provided to day shift nurse. Pt is lying in bed resting. He is a 31 yo male admitted to [facility] on 02/22 for ETOH BZD, and opiate dependence. He has NKA, is full code status, and on a regular diet. He has a PMH of anxiety, depression, and shoulder surgery. Pt. had an abscess to the left upper arm on admission. I&D performed on 02/25. Dressing is clean, dry, and intact. Oral abx ordered. On admission he admitted to drinking 6 rizwana's beers per day, using klonopin 6mg per day, heroin IV 3 grams per day, and meth 0.25 grams per day. 5 day Ativan and 5 day Subutex started 02/23. One time Toradol 60mg administered for abscess site pain. PRN Clonidine, Benadryl, Zofran, and Mylanta administered. Last COWS 4 and CIWA 3. He drank 1710mL and slept for 5 hours. Fall and seizure precautions in place. Bed is down with call light in reach.
--- NOTE | 2017-02-28 07:14 | NUR ---
Start of Shift Notes: Received patient in his room. Alert and oriented x 4. Verbally responsive. Able to make needs known. Respirations even and unlabored. No SOB noted. Skin warm and dry to touch. Has presence of left arm dressing related to s/p I and D. Abdomen soft and non-distended. Bowel sounds present in all 4 quadrants. No complains N/V/D or abdominal pain noted. No complains of diarrhea or constipation. Voids independently. Ambulatory ad cliff with steady gait. Voids independently No complains of dysuria. Patient is a 31 year old male admitted for BZO/ETOH and opiate dependence whow as placed on a 5-day Subutex and 5-day Ativan taper as ordered. No adverse reactions noted. Has past medical hx of anxiety, depression and shoulder surgery. On fall and seizure precautions. FULL CODE. Regular diet. NKA. Educated patient on his current plan of care and his medication regimen. Patient verbalized good understanding. Encouraged oral fluid intake and encouraged group participation to learn new skills to prevent relapse.
[2017-02-28 08:00] VITALS: BP 95/61
[2017-02-28] MEDS: FOLIC ACID 1 MG TABLET PO SCH (08:46)
[2017-02-28] MEDS: DOXYCYCLINE HYCLATE 100 MG TABLET PO SCH ×2 (08:46→22:04)
[2017-02-28] MEDS: BACLOFEN 10 MG TABLET PO SCH ×2 (08:46→14:29)
[2017-02-28] MEDS: DICYCLOMINE HCL 20 MG TABLET PO SCH ×3 (08:46→22:03)
[2017-02-28] MEDS: GABAPENTIN 300 MG CAPSULE PO SCH ×3 (08:46→22:04)
[2017-02-28] MEDS: MULTIVITAMINS,THERAPEUTIC TABLET PO SCH (08:47)
[2017-02-28] MEDS: THIAMINE HCL 100 MG TABLET PO SCH (08:47)
[2017-02-28] MEDS: ESCITALOPRAM OXALATE 10 MG TABLET PO SCH (08:47)
[2017-02-28] MEDS: FAMOTIDINE 20 MG TABLET PO SCH (08:47)
[2017-02-28] MEDS: ACETAMINOPHEN 325 MG TABLET PO SCH ×3 (08:47→22:04)
[2017-02-28] MEDS: KETOROLAC TROMETHAMINE 30 MG INJ IM PRN ×2 (08:48→22:19)
[2017-02-28] MEDS: SODIUM HYPOCHLORITE 0.25% 480 ML BOTTLE TOP SCH (08:48)
--- NOTE | 2017-02-28 08:48 | NUR ---
Toradol 30 mg IM given: Patient complained of 8/10 left arm burning pain related to S/P I&D. Prefers to take Toradol instead of scheduled Naprosyn. Toradol 30 mg IM given to left buttock. No bleeding from area noted. Will continue to monitor for effectiveness.
[2017-02-28] MEDS ORDERED: BUPRENORPHINE HCL 2 MG TAB.SUBL SL SCH (09:00)
[2017-02-28] MEDS: NAPROXEN 500 MG TABLET PO SCH ×2 (09:00→21:00)
--- NOTE | 2017-02-28 09:14 | NUR ---
Naproxen 500 not administered: Patient received Toradol 30 mg IM. Scheduled Naproxen was not given.
--- NOTE | 2017-02-28 09:18 | NUR ---
Re-assessment: Per patient, PRN Toradol was effective in reducing left arm pain. PL 4/10.
[2017-02-28 10:26] LABS: *AMPHETAMINE, URINE NEGATIVE (NEGATIVE); *BARBITURATE, URINE NEGATIVE (NEGATIVE); *CANNABINOID, URINE NEGATIVE (NEGATIVE); *COCCAINE, URINE NEGATIVE (NEGATIVE); *OPIATE, URINE POSITIVE (NEGATIVE); *PHENCYCLIDINE SCREEN,URINE NEGATIVE (NEGATIVE)
[2017-02-28 12:00] VITALS: BP 104/61
[2017-02-28] MEDS: ONDANSETRON ODT 4 MG TAB.RAPDIS SL PRN (14:32)
[2017-02-28] MEDS ORDERED: BACLOFEN 20 MG TABLET PO PRN (15:30)
--- NOTE | 2017-02-28 15:32 | NUR ---
Re-assessment: Per patient, PRN Zofran was effective in relieving nausea.
[2017-02-28 16:00] VITALS: BP 106/75
[2017-02-28] MEDS ORDERED: Acetaminophen PO (18:06)
[2017-02-28] MEDS ORDERED: Gabapentin PO ×2 (18:06)
[2017-02-28] MEDS ORDERED: DIPH50CA37 PO (18:06)
[2017-02-28] MEDS ORDERED: Famotidine PO (18:06)
[2017-02-28] MEDS ORDERED: Naproxen PO (18:06)
[2017-02-28] MEDS ORDERED: HYDR-3895 PO (18:06)
[2017-02-28] MEDS ORDERED: Doxycycline Hyclate PO (18:06)
[2017-02-28] MEDS ORDERED: Baclofen PO (18:06)
[2017-02-28] MEDS ORDERED: ESCI10TA PO (18:06)
[2017-02-28] MEDS ORDERED: DICY20TA28 PO (18:06)
--- NOTE | 2017-02-28 18:48 | NUR ---
MD communication Pt requested medication to assist with sleeping, Dr Mclaughlin notified, ordered seroquel 50mg PO x 1 tonight. Orders entered, unable to enter orders.
--- NOTE | 2017-02-28 18:57 | NUR ---
End of Shift Notes: Patient is a 31 year old male admitted for ETOH/BZO and opiate dependence who was placed on a 5-day Ativan and Subutex taper as ordered. No adverse reactions noted. Prior to admission, patient was using 6 pack of mickeys, 6 mg of klonopin, 3 grams of heroin and 0.25 gram of methamphetamine. VS monitored closely. No significant abnormalities noted. Withdrawal symptoms were closely monitored. Patient presented with anxiety, and bone/joint ache. Initial COWS 3/CIWA 2. Last COWS 1/CIWA 1. Patient will be discharging tomorrow. UDS in and resulted. Appetite good. Treatment to left arm s/p I&D rendered. Tolerated well. No s/s of infection noted. ATB therapy of Doxycycline ongoing as ordered. Requires encouragement to attend group and activities. PRN Toradol 30 mg IM given at 0848 with help after 30 minutes. Zofran 4 mg ODT given at 1432 due to nausea with help after 1 hour. All needs met and attended. Will continue to monitor closely.
[2017-02-28 20:00] VITALS: BP 116/79
--- NOTE | 2017-02-28 20:05 | NUR ---
START OF SHIFT Received report from day shift nurse. Pt attended a group meeting and returned to his room after. He is a 31 yo male admitted to [facility] on 02/22 for ETOH BZD, and opiate dependence. He has a PMH of anxiety, depression, shoulder surgery. Pt. had an abscess to the left upper arm on admission with I&D performed on 02/25. Dressing is clean, dry, and intact. He is ordered oral abx. On admission he admitted to drinking 6 rizwana's beers per day, using klonopin 6mg per day, heroin IV 3 grams per day, and meth 0.25 grams per day. Pt completed a 5 day Ativan and 5 day Subutex taper and is scheduled for discharge tomorrow. He reports right arm pain and mild anxiety. Pt states that he is looking forward to the next step in his recovery. Fall and seizure precautions in place. Bed is down with call light in reach.
[2017-02-28] MEDS ORDERED: QUETIAPINE FUMARATE 200 MG TABLET PO ONE (20:45)
[2017-02-28] MEDS ORDERED: QUETIAPINE FUMARATE 25 MG TABLET PO ONE (21:00)
--- NOTE | 2017-02-28 22:20 | NUR ---
PRN Toradol administration Pt reported pain 8/10 at left arm abscess site. PRN Toradol administered.
--- NOTE | 2017-02-28 23:20 | NUR ---
PRN Toradol reassessment PRN Toradol effective. Pt is lying comfortably in bed with eyes closed. Respirations even and unlabored. Bed down with call light in reach.
--- NOTE | 2017-03-01 | NUR ---
0000 Vitals refused. COWS deferred. Pt refused to be woken for 0000 vitals. COWS ordered Q4HWA
--- NOTE | 2017-03-01 04:00 | NUR ---
0400 Vitals refused. COWS deferred. Pt refused to be woken for 0400 vitals. Respirations even and unlabored. Safety measures in place. COWS ordered Q4HWA
--- NOTE | 2017-03-01 07:05 | NUR ---
END OF SHIFT Report provided to day shift nurse. Pt is lying in bed resting. He is a 31 yo male admitted to [facility] on 02/22 for ETOH BZD, and opiate dependence. Pt is A&O x4 and ambulatory. NKA, full code, regular diet. He has a PMH of anxiety, depression, shoulder surgery. Pt. had an abscess to the left upper arm on admission with I&D performed on 02/25. On admission he admitted to drinking 6 rizwana's beers per day, using klonopin 6mg per day, heroin IV 3 grams per day, and meth 0.25 grams per day. Pt completed a 5 day Ativan and 5 day Subutex taper and is scheduled for discharge today. Last COWS 2 and CIWA 1. PRN Toradol administered. He drank 1000mL and slept for 7 hours. Fall and seizure precautions in place. Safety measures in place.
--- NOTE | 2017-03-01 07:30 | NUR ---
START OF SHIFT NOTE Received report from night nurse, 31 year old male admitted for ETOH/BENZO/Opioid dependence. Pt completed his 5 day Ativan and 5 day Subutex taper. Pt is also cont with Po antibiotic for left arm post I&D. Per endorsement pt received PRN Toradol effective. Last COWS-2, CIWA -1, Slept for 7 hours. Received pt alert awake oriented x4, Breathing normal no SOB noted. Respiration even and unlabored, lungs clear upon auscultation, abdomen soft and non-distended. Pt denies nausea,vomiting and diarrhea. Patient denies SI/HI. Pt is excited about being discharged, pt expresses motivation for being sober. Safety measures in place. Call light kept within reach. Will continue to monitor.
[2017-03-01 08:00] VITALS: BP 106/63
[2017-03-01] MEDS: DICYCLOMINE HCL 20 MG TABLET PO SCH (08:27)
[2017-03-01] MEDS: FOLIC ACID 1 MG TABLET PO SCH (08:27)
[2017-03-01] MEDS: MULTIVITAMINS,THERAPEUTIC TABLET PO SCH (08:27)
[2017-03-01] MEDS: GABAPENTIN 300 MG CAPSULE PO SCH (08:27)
[2017-03-01] MEDS: SODIUM HYPOCHLORITE 0.25% 480 ML BOTTLE TOP SCH (08:27)
[2017-03-01] MEDS: ESCITALOPRAM OXALATE 10 MG TABLET PO SCH (08:27)
[2017-03-01] MEDS: ACETAMINOPHEN 325 MG TABLET PO SCH (08:27)
[2017-03-01] MEDS: DOXYCYCLINE HYCLATE 100 MG TABLET PO SCH (08:27)
[2017-03-01] MEDS: NAPROXEN 500 MG TABLET PO SCH (08:28)
[2017-03-01] MEDS: FAMOTIDINE 20 MG TABLET PO SCH (08:28)
[2017-03-01] MEDS: THIAMINE HCL 100 MG TABLET PO SCH (08:28)
--- NOTE | 2017-03-01 10:20 | NUR ---
DISCHARGE NOTE Pt was admitted for ETOH/BENZO/Opioid dependence. Pt completed his 5 day Ativan and 5 day Subutex taper tolerated well. Last COWS-0, CIWA-0. Vital signs remained stable. Pt states that he has no pain discomfort or s/s of withdrawal at this time. Denies any thoughts of suicide. Pt states that he feels ready for discharge. Pt verbalized his understanding of the discharge instructions. Pt medications, discharge instructions and valuables secured in the duffle bag and then given to SENIOR [employer]S ADMINISTRATOR. All belongings returned to pt. Pt ID band removed, Pt ambulated off of unit. Pt left via [facility] transport via [facility].
[2017-03-03 06:06] LABS: *AMPHETAMINE Negative (Cutoff=500); *CODEINE Positive (.); *HYDROMORPHONE Positive (.); *METHAMPHETAMINE Positive (.); *OPIATES Positive ng/mL (Cutoff=300)
== END 2017-03-01 10:20 | disposition other institution (70) | DRG 895 ==
LOC: SRC 19:17
PROVIDERS: ADMIT Internal Medicine; ATTEND Internal Medicine
PROC: HZ2ZZZZ Detoxification Services for Substance Abuse Treatment (ICD-10-PCS; principal; 2017-02-22)
PROC: 0H9CXZZ Drainage of Left Upper Arm Skin, External Approach (ICD-10-PCS; 2017-02-23)
PROC: HZ31ZZZ Individual Counseling for Substance Abuse Treatment, Behavioral (ICD-10-PCS; 2017-02-23)
PROC: HZ41ZZZ Group Counseling for Substance Abuse Treatment, Behavioral (ICD-10-PCS; 2017-02-26)
DX: F11.23 Opioid dependence with withdrawal (principal); L03.114 Cellulitis of left upper limb; L02.414 Cutaneous abscess of left upper limb; F15.20 Other stimulant dependence, uncomplicated; F10.230 Alcohol dependence with withdrawal, uncomplicated; Y90.9 Presence of alcohol in blood, level not specified; Z81.8 Family history of other mental and behavioral disorders; F17.210 Nicotine dependence, cigarettes, uncomplicated; F41.9 Anxiety disorder, unspecified; D64.9 Anemia, unspecified; S51.042 Puncture wound with foreign body of left elbow; X78.8XXS Intentional self-harm by other sharp object, sequela; Z18.10 Retained metal fragments, unspecified; F13.230 Sedative, hypnotic or anxiolytic dependence with withdrawal, uncomplicated; F32.9 Major depressive disorder, single episode, unspecified
CPT/HCPCS: 36415; 70030-TC; 73060; 76700; 80307; 80324; 80361; 82306; 82746; 83550; 83690; 83735; 84100; 84443; 85025; 86580; 86592; 86705; 86803; 87070; 87077; 87340; 87806; A4663; G6040-TC; J1885; J3411; J3490; Q0162; Q0163

== ENCOUNTER 2017-06-23 10:01 | Inpatient (IN) | payer BC, OTHER ==
[~2017-06-23] VITALS: Ht 175.3 cm; Wt 66.7 kg
[~2017-06-23 10:01] MED LIST: Acetaminophen PO; Baclofen PO; CALC500T13 PO; DICY20TA28 PO; DIPH28.33 TP; DIPH50CA37 PO; Doxycycline Hyclate PO; ESCI10TA PO; Famotidine PO; Gabapentin PO; HYDR-3895 PO; MULT-1045 PO; NEOM28.3 TP; NICO1PAT25 TP; Naproxen PO
[2017-06-23] MEDS ORDERED: ACETAMINOPHEN 325 MG TABLET PO PRN (19:30)
[2017-06-23] MEDS ORDERED: THIAMINE HCL 200 MG/2 ML VIAL IM ONE (19:30)
[2017-06-23] MEDS ORDERED: LORAZEPAM 1 MG TABLET PO PRN ×2 (19:30)
[2017-06-23] MEDS ORDERED: LORAZEPAM 2 MG/1 ML VIAL IM PRN (19:30)
[2017-06-23] MEDS ORDERED: IBUPROFEN 600 MG TABLET PO PRN (19:30)
[2017-06-23] MEDS ORDERED: ONDANSETRON 4 MG/2 ML VIAL IM PRN (19:30)
[2017-06-23] MEDS ORDERED: MIRALAX 17 GM POWD.PACK PO PRN (19:30)
[2017-06-23] MEDS ORDERED: MAG HYDROX/AL HYDROX/SIMETH 30 ML LIQUID UDC PO PRN (19:30)
[2017-06-23] MEDS ORDERED: diphenhydrAMINE 50 MG CAPSULE PO PRN (19:30)
[2017-06-23] MEDS ORDERED: DICYCLOMINE HCL 20 MG TABLET PO PRN (19:30)
[2017-06-23] MEDS ORDERED: LOPERAMIDE HCL 2 MG CAPSULE PO PRN ×2 (19:30)
[2017-06-23] MEDS ORDERED: CLONIDINE HCL 0.1 MG TABLET PO PRN (19:30)
[2017-06-23] MEDS ORDERED: METHOCARBAMOL 750 MG TABLET PO PRN (19:30)
[2017-06-23] MEDS ORDERED: BUPRENORPHINE HCL 2 MG TAB.SUBL SL PRN (19:30)
[2017-06-23 19:40] VITALS: BP 103/65
--- NOTE | 2017-06-23 19:40 | NUR ---
INTAKE ASSESSMENT BP: 103/65, HR: 105, RR:18, SpO2:95%, T:96.6, Pain: right arm 5/10, abdominal cramps 5/10. Pt is in stable condition and able to be admitted on the unit. Unit protocols regarding medications and vitals signs Q4H were explained. Pt verbalized understanding. Will continue admission upon arrival on the unit.
[2017-06-23 20:00] VITALS: BP 103/65
[2017-06-23 20:34] LABS: HEMATOCRIT 43.9 % (40-50); HEMOGLOBIN 14.4 G/DL (14.0-18.0); MEAN CORPUSCULAR HEMOGLOBIN 28.9 UUG (27.0-31.0); MEAN CORPUSCULAR HGB CONC 33 g/dL (32.0-37.0); MEAN CORPUSCULAR VOLUME 88.3 FL (82.0-92.0); PLATELET COUNT (AUTO) 89 K/UL (150-450); RED BLOOD CELL COUNT(AUTO) 4.98 MIL/UL (4.7-6.1); WHITE BLOOD COUNT (AUTO) 11.2 K/UL (4.0-11.2)
[2017-06-23 20:46] LABS: ALANINE AMINOTRANSFERASE 21 U/L (16-63); ALKALINE PHOSPHATASE 105 U/L (50-136); ASPARTATE AMINOTRANSFERASE 18 U/L (15-37); BILIRUBIN,TOTAL 0.4 mg/dL (0.2-1.0); CARBON DIOXIDE 30 mmol/L (21-32); CHLORIDE 100 mmol/L (98-107); CREATININE 1.1 mg/dL (0.6-1.3); GLUCOSE 94 mg/dL (74-106); POTASSIUM 4.2 mmol/L (3.5-5.1); TOTAL PROTEIN, SERUM 6.9 g/dL (6.4-8.2); UREA NITROGEN, BLOOD 9 mg/dL (7-18)
[2017-06-23 20:47] LABS: ETHANOL < 3 MG/DL (0-0)
[2017-06-23] MEDS ORDERED: LORAZEPAM 1 MG TABLET PO SCH (21:00)
[2017-06-23 21:21] LABS: BAND % (MANUAL) 12 % (0-10); EOSINOPHILS % (MANUAL) 1 % (0-8); LYMPHOCYTES % (MANUAL) 14 % (20-40); MONOCYTES % (MANUAL) 8 % (2-10); NEUTROPHILS % (MANUAL) 65 % (42-75)
[2017-06-23 21:40] LABS: *AMPHETAMINE, URINE POSITIVE (NEGATIVE); *BARBITURATE, URINE NEGATIVE (NEGATIVE); *CANNABINOID, URINE NEGATIVE (NEGATIVE); *COCCAINE, URINE NEGATIVE (NEGATIVE); *OPIATE, URINE POSITIVE (NEGATIVE); *PHENCYCLIDINE SCREEN,URINE NEGATIVE (NEGATIVE)
--- NOTE | 2017-06-23 22:00 | NUR ---
ADMISSION NOTE COWS: 9, CIWA:6 Pt arrived ambulatory from [facility] Intake to the third floor accompanied by a CCNP at 1956. Pt is a 32 year old male admitted on 06/23/17 for Benzodiazepine, ETOH, Heroin and Methamphetamine dependency. Pt is full code with allergy to psyllium. Pt reports a PMHx of anxiety and right shoulder surgery. He did not bring any home medications but reports taking Gabapentin 800 mg TID, Vistaril 50 mg BID PRN, and Wellbutrin. Pt reports he does not want to continue taking Wellbutrin. He states that he has a PCP by the name of Dr. Payton Richardson located in [place], [place]. He reports his last sobriety was in February 2017 for 94 days. He was recently at [facility] in February 2017 and relapsed in April 2017. He verbalized he is here for Xanax, ETOH, Heroin and Meth. He describes his current use as: 1.ETOH (vodka) 375 mL daily for 1.5 months Last dose: 375 mL on 06/23/17 at 0200. 2.Xanax 9 mg daily for 1.5 months Last dose: 9 mg on 06/23/17 at 0200. 3.Heroin IV 2 grams daily for 1.5 months Last dose: 2 grams IV on 06/23/17 at 0200 4.Methamphetamine IV 0.5 grams daily for 1.5 months Last dose: 0.5 grams on 06/23/17 at 0200. Pt describes his withdrawal symptoms as anxiety, agitation, sadness, nausea, vomiting, chills Upon assessment, pt is alert and oriented x4, anxious, agitated, restless, and nauseous. Pt is cooperative. Speech is clear and audible. Heart rate is regular. Pt denies chest pain or SOB. PERRLA, breathing is even and unlabored. Lung sounds clear in all lobes, abdomen is soft, pt complains of constipation related to opiate use. Bowel sounds present, hypoactive. Last BM 06/20/17. Pt's skin is warm, dry and intact. Pt noted with right arm swelling related to IV drug use. Warm and tender to touch. Pt started on Bactrim PO. Pt also noted with multiple closed scabs on chest and bilateral arms d/t skin picking. Pt was seen by . Pt was oriented to room and unit. Pt is safe with bed locked in lowest position, pt refuses side rails, call light within reach. Will continue to monitor.
[2017-06-23] MEDS ORDERED: THIAMINE HCL 200 MG/2 ML VIAL ONE (23:20)
[2017-06-23] MEDS ORDERED: LORAZEPAM 1 MG TABLET ONE (23:21)
[2017-06-23] MEDS: LACTOBACILLUS RHAMNOSUS GG 1 EACH CAPSULE PO SCH (23:46)
[2017-06-23] MEDS: GABAPENTIN 300 MG CAPSULE PO SCH (23:47)
[2017-06-23] MEDS: SULFAMETH/TRIMETH 800/160 MG TABLET PO SCH (23:47)
--- NOTE | 2017-06-23 23:47 | NUR ---
PRN SUBUTEX, ZOFRAN, BENTYL, MOTRIN, MIRALAX Pt complains of sweats, anxiety, agitation, restlessness, abdominal cramps, right arm pain, nausea and vomiting x2, and constipation. COWS:12, CIWA:8. PRN Subutex, Zofran, Bentyl, Motrin and Miralax administered as ordered. Will monitor effectiveness of medications.
[2017-06-23] MEDS: ONDANSETRON ODT 4 MG TAB.RAPDIS SL PRN (23:49)
[2017-06-23] MEDS ORDERED: BUPRENORPHINE HCL 2 MG TAB.SUBL SL ONE (23:54)
[2017-06-24] VITALS (7 sets, daily range): BP systolic 84–120; BP diastolic 40–81
--- NOTE | 2017-06-24 00:47 | NUR ---
PRN REASSESSMENT PRN medications effective. Pt lying in bed with eyes closed noted to be asleep. No facial grimacing noted. Respirations 16, breathing is even and unlabored. Call light within reach. Will continue to monitor.
[2017-06-24] MEDS ORDERED: TRIA15CR2 TP (02:01)
[2017-06-24] MEDS: ONDANSETRON ODT 4 MG TAB.RAPDIS SL PRN (02:29)
--- NOTE | 2017-06-24 04:00 | NUR ---
COWS, CIWA DEFERRED 0400 COWS and CIWA deferred d/t pt lying in bed with eyes closed noted to be asleep. Breathing even and unlabored, safety measures in place. Will monitor.
--- NOTE | 2017-06-24 07:07 | NUR ---
END OF SHIFT Pt is a 32 year old male admitted on 06/23/17 for ETOH, Benzodiazepine, Heroin and Methamphetamine. Pt is full code with allergy to psyllium. He reports a PMHx of anxiety and right shoulder surgery. At 2347 he received PRN medications of Subutex, Bentyl, Miralax, Motrin and Miralax. He is scheduled to start a 5 day Ativan and 5 day Subutex taper today. He slept a total of 6 hrs, Intake: 582mL, Void: x2, BM:0, COWS:12, CIWA:8. Pt remains alert and oriented x4, breathing is even and unlabored. Safety measures in place. Endorsed to oncoming shift.
--- NOTE | 2017-06-24 07:15 | NUR ---
Start of shift note Pt was admitted for ETOH, benzo, opiate dependence and methamphetamine abuse. Pt has a PMHx of anxiety. Pt is a full code, on a regular diet and reports and allergy to psyllium. Pt is scheduled to start a 5 day ativan and a 5 day subutex taper today. Pt is currently resting in bed, pt has no complaints at this time. Will continue to monitor pt.
--- NOTE | 2017-06-24 08:00 | NUR ---
COWS/CIWA deferred Pt is sleeping soundly, pt has no complaints at this time, refuses to answer questions pertaining to COWS/CIWA. Will continue to monitor pt.
[2017-06-24] MEDS: LORAZEPAM 1 MG TABLET PO SCH ×5 (09:00→21:53)
[2017-06-24] MEDS: LACTOBACILLUS RHAMNOSUS GG 1 EACH CAPSULE PO SCH ×3 (09:00→21:53)
[2017-06-24] MEDS: FOLIC ACID 1 MG TABLET PO SCH (09:00)
[2017-06-24] MEDS: SULFAMETH/TRIMETH 800/160 MG TABLET PO SCH ×3 (09:00→21:53)
[2017-06-24] MEDS: MULTIVITAMINS,THERAPEUTIC TABLET PO SCH (09:00)
[2017-06-24] MEDS: THIAMINE HCL 100 MG TABLET PO SCH (09:00)
[2017-06-24] MEDS ORDERED: TUBERCULIN,PURIF.PROT.DERIV. 5 TU/0.1 ML TEST ID ONE (09:00)
[2017-06-24] MEDS: GABAPENTIN 300 MG CAPSULE PO SCH ×3 (09:00→21:53)
[2017-06-24] MEDS: BUPRENORPHINE HCL 2 MG TAB.SUBL SL SCH ×5 (09:00→21:54)
--- NOTE | 2017-06-24 09:45 | NUR ---
Medications held Pt is sleeping, pt has no complaints at this time. Will hold medications, administer late if pt awakens and requests medications. Dr Bradshaw is aware. NNO at this time. Will continue to monitor pt.
--- NOTE | 2017-06-24 14:33 | NUR ---
Late Administration Pt medications administered late, Dr Bradshaw aware. NNO. Will continue to monitor pt.
[2017-06-24] MEDS ORDERED: TRIAMCINOLONE ACET 0.1% CREAM 15 GM TUBE TOP PRN (15:45)
--- NOTE | 2017-06-24 19:15 | NUR ---
START OF SHIFT NOTE : Pt was admitted to [facility] on 06/23/2017 for ETOH, benzo, opiate dependence and methamphetamine abuse. Pt has a PMHx of anxiety. Pt is a full code, on a regular diet and reports and allergy to psyllium. Pt is scheduled to start a 5 day ativan and a 5 day subutex taper today. Pt is currently resting in bed, pt has no complaints at this time. All safety measures in the place by hospital policy: Call light within reach; bed locked and in the lowest position; padded rails up x 2. Will continue to monitor and offer help.
--- NOTE | 2017-06-24 19:17 | NUR ---
End of shift note Pt was admitted for ETOH, benzo, opiate dependence and methamphetamine abuse. Pt has a PMHx of anxiety. Pt is a full code, on a regular diet and reports and allergy to psyllium. Pt started his 5 day subutex and 5 day ativan taper at 1415 d/t sedation prior to that time. . Pt ate 50% of breakfast, 50% of lunch, and 75% of dinner, pt drank 1151ml of fluids, had 3 voids and no BM's during the shift. Pt had a COWS and CIWA of 7 and 7 at 1600. Pt has no complaints at this time. Will endorse SBAR to oncoming shift. All needs addressed at this time.
[2017-06-25] VITALS (7 sets, daily range): BP systolic 94–118; BP diastolic 45–69
--- NOTE | 2017-06-25 06:44 | NUR ---
END OF SHIFT NOTE : Pt was admitted to [facility] [place] on 06/23/2017 for ETOH, benzo, opiate dependence and methamphetamine abuse. Pt has a PMHx of anxiety. Pt is a full code, on a regular diet and reports and allergy to psyllium. Pt is scheduled to start a 5 day ativan and a 5 day subutex taper on 06/24/2017 . Pt remains compliant with the treatment plan. No PRNs were given during my shift. V/S remain WNL. RR=16, even and unlabored, lungs clear upon auscultation, abdomen soft and non- distended. Pt denies nausea, vomiting and diarrhea. LAST CIWA=4 ,COWS= 5 at 0400 , INTAKE=1,446 ml, voided x2 , slept 9 hours. Safety measures in place : bed on lowest position with side rails x2 up for safety, call light within reach. Will continue to monitor closely and offer help.
--- NOTE | 2017-06-25 07:15 | NUR ---
Start of shift note SBAR report rcv'd. Pt was admitted for ETOH, benzo, opiate and methamphetamine dependence. Pt has a PMHx of anxiety. Pt is a full code, allergic to psyllium and on a regular diet. Pt is on day 2 of his subutex and ativan taper. Pt is currently resting in bed, pt has no complaints at this time. Will continue to monitor pt. All needs addressed at this time.
[2017-06-25] MEDS: THIAMINE HCL 100 MG TABLET PO SCH (08:57)
[2017-06-25] MEDS: LORAZEPAM 1 MG TABLET PO SCH ×3 (08:57→20:58)
[2017-06-25] MEDS: LACTOBACILLUS RHAMNOSUS GG 1 EACH CAPSULE PO SCH ×2 (08:57→20:58)
[2017-06-25] MEDS: SULFAMETH/TRIMETH 800/160 MG TABLET PO SCH ×2 (08:57→20:58)
[2017-06-25] MEDS: FOLIC ACID 1 MG TABLET PO SCH (08:57)
[2017-06-25] MEDS: GABAPENTIN 300 MG CAPSULE PO SCH (08:57)
[2017-06-25] MEDS: MULTIVITAMINS,THERAPEUTIC TABLET PO SCH (08:57)
[2017-06-25] MEDS: BUPRENORPHINE HCL 2 MG TAB.SUBL SL SCH ×3 (08:58→20:58)
[2017-06-25] MEDS ORDERED: TUBERCULIN,PURIF.PROT.DERIV. 5 TU/0.1 ML TEST ID ONE (09:00)
[2017-06-25 11:07] LABS: HEPATITIS B SURFACE AG Negative (Negative)
[2017-06-25] MEDS ORDERED: LIDOCAINE 1%-EPI 1:200,000 MPF 30 ML VIAL MC ONE (12:45)
[2017-06-25] MEDS ORDERED: MISCELLANEOUS MED INJ ONE (12:45)
[2017-06-25] MEDS: BACLOFEN 10 MG TABLET PO SCH ×2 (14:26→20:58)
[2017-06-25] MEDS: GABAPENTIN 400 MG CAPSULE PO SCH ×2 (14:26→20:58)
[2017-06-25] MEDS ORDERED: MUPIROCIN 2% CREAM 15 GM TUBE TOP ONE (15:00)
[2017-06-25] MEDS ORDERED: MUPIROCIN 2% CREAM 15 GM TUBE TOP SCH (15:00)
[2017-06-25] MEDS: MUPIROCIN 2% OINT 22 GM TUBE TP SCH ×2 (17:09→20:59)
--- NOTE | 2017-06-25 19:09 | NUR ---
End of shift note Pt was admitted for ETOH, benzo, opiate and methamphetamine dependence. Pt is a full code, allergic to psyllium and on a regular diet. Pt has a PMHx of anxiety and is on PO bactrim for a possible abscess to his right forearm. Dr Hall stated that he would like to perform an I&D, however at this time, the pt is requesting for it to be reassessed tomorrow. Dr Hall was notified. Pt is on day 2 of his subutex and ativan taper and he is tolerating well. Pt did not require any PRN medication to mange his s/s of withdrawal. Pt started on topical bactroban to his right forearm during the shift. Pt drank 1525ml of fluid, had 5 voids and 1 BM, ate 50% of breakfast, 75% of lunch and 100% of dinner. At 1600 pt had a COWS of 5 and a CIWA of 3. Pt has no complaints at this time. Will endorse SBAR to oncoming shift.
--- NOTE | 2017-06-25 19:15 | NUR ---
START OF SHIFT NOTE : Pt was admitted to [facility] on 06/23/2017 for ETOH, benzo, opiate dependence and methamphetamine abuse. Pt has a PMHx of anxiety and is on PO bactrim for a possible abscess to his right forearm. Dr Hall stated that he would like to perform an I&D, however at this time, the pt is requesting for it to be reassessed tomorrow.. Pt is a full code, on a regular diet and reports and allergy to psyllium. Pt is scheduled to start a 5 day ativan and a 5 day subutex taper today. Last CIWA=3, COWS=5 at 16:00. Pt is currently in the activity room., pt has no complaints at this time. All safety measures in the place by hospital policy: Call light within reach; bed locked and in the lowest position; padded rails up x 2. Will continue to monitor and offer help.
[2017-06-25] MEDS: CLONIDINE HCL 0.1 MG TABLET PO SCH (21:00)
--- NOTE | 2017-06-25 22:00 | NUR ---
PRN TORADOL Pt. complains of pain in the right FA, 06/01. PRN TORADOL given as ordered. Safety measures in place : bed on lowest position with side rails x2 up for safety, call light within reach. Will continue to monitor closely and offer help.
[2017-06-25] MEDS ORDERED: KETOROLAC TROMETHAMINE 30 MG INJ ONE (22:02)
--- NOTE | 2017-06-25 23:00 | NUR ---
RE-ASSESSMENT TORADOL Pt. is sleeping, RR=16 , unlabored and even. Safety measures in place : bed on lowest position with side rails x2 up for safety, call light within reach. Will continue to monitor closely and offer help.
[2017-06-26] MEDS: KETOROLAC TROMETHAMINE 30 MG INJ IM PRN
--- NOTE | 2017-06-26 06:47 | NUR ---
END OF SHIFT NOTE : Pt was admitted to [facility] [place] on 06/23/2017 for ETOH, benzo, opiate dependence and methamphetamine abuse. Pt has a PMHx of anxiety and is on PO bactrim for a possible abscess to his right forearm. Dr Hall stated that he would like to perform an I&D, however at this time, the pt is requesting for it to be reassessed today. Pt is a full code, on a regular diet and reports and allergy to psyllium. Pt is started a 5 day ativan and a 5 day subutex taper on 06/24/2107. Pt remains compliant with the treatment plan. PRN TORADOL given during my shift(right FA abcess). V/S remain WNL. RR=16, even and unlabored, lungs clear upon auscultation, abdomen soft and non- distended. Pt denies nausea, vomiting and diarrhea. LAST CIWA=4 ,COWS=5 at 0400 , XMVOCT=0735 ml, voided x 2, slept 8 hours. Safety measures in place : bed on lowest position with side rails x2 up for safety, call light within reach. Will continue to monitor closely and offer help.
[2017-06-26 08:01] VITALS: BP 90/60
--- NOTE | 2017-06-26 08:05 | NUR ---
START OF SHIFT: RECEIVED PT A/O X 4. HE REPORTS STOMACH UPSET,ANXIETY,CHILLS AND BODY ACHES. ATIVAN/SUBUTEX TAPER IN PROGRESS TO MANAGE S/S OF W/D. COWS 4 CIWA 4. ABT THERAPY (BACTRIM) GIVEN TO MANAGE ABSCESS. ENCOURAGED INCREASED FLUIDS TO ASSIST IN FACILITATING DETOX PROCESS. ENCOURAGED GROUP ATTENDANCE TO IMPROVE COPING SKILLS AND PREVENT RELAPSE. WILL CONTINUE TO MONITOR AND OFFER SUPPORT. Addendum: 06/26/17 at 0957 by PABLITO NOVOA RN CIWA 2.
[2017-06-26] MEDS ORDERED: BUPRENORPHINE HCL 2 MG TAB.SUBL SL SCH ×2 (09:00→14:00)
[2017-06-26] MEDS: CLONIDINE HCL 0.1 MG TABLET PO SCH (09:00)
[2017-06-26] MEDS: LORAZEPAM 1 MG TABLET PO SCH ×4 (09:33→22:10)
[2017-06-26] MEDS: MULTIVITAMINS,THERAPEUTIC TABLET PO SCH (09:33)
[2017-06-26] MEDS: FOLIC ACID 1 MG TABLET PO SCH (09:33)
[2017-06-26] MEDS: GABAPENTIN 400 MG CAPSULE PO SCH (09:33)
[2017-06-26] MEDS: BACLOFEN 10 MG TABLET PO SCH (09:33)
[2017-06-26] MEDS: SULFAMETH/TRIMETH 800/160 MG TABLET PO SCH ×2 (09:34→22:09)
[2017-06-26] MEDS: LACTOBACILLUS RHAMNOSUS GG 1 EACH CAPSULE PO SCH ×2 (09:35→22:09)
[2017-06-26] MEDS: MUPIROCIN 2% OINT 22 GM TUBE TP SCH ×2 (09:35→22:10)
[2017-06-26] MEDS: THIAMINE HCL 100 MG TABLET PO SCH (09:35)
[2017-06-26 12:00] VITALS: BP 120/69
[2017-06-26] MEDS ORDERED: BUPRENORPHINE HCL 2 MG TAB.SUBL SL ONE (13:00)
[2017-06-26] MEDS: DICYCLOMINE HCL 20 MG TABLET PO SCH ×2 (15:59→22:09)
[2017-06-26] MEDS: GABAPENTIN 300 MG CAPSULE PO SCH ×2 (15:59→22:09)
[2017-06-26] MEDS: BACLOFEN 20 MG TABLET PO SCH ×2 (15:59→22:09)
[2017-06-26 16:00] VITALS: BP 91/60
[2017-06-26] MEDS: BUPRENORPHINE HCL 2 MG TAB.SUBL SL SCH ×2 (16:00→22:10)
--- NOTE | 2017-06-26 17:49 | NUR ---
1600 COWS AND CIWA DEFERRED. 1700 MEDS HELD PT IS SLEEPING
--- NOTE | 2017-06-26 18:38 | NUR ---
END OF SHIFT: PT CONTINUES ON ATIVAN/SUBUTEX TAPER. HE INTERACTED WITH PEERS AND ATTENDED SOME GROUPS. HE REPORTED SOME ANXIETY AND BODY ACHES. 1600 COWS AND CIWAS DEFERRED HE WAS SLEEPING . HE IS COMPLIANT WITH MEDS. NO PRNS GIVEN ON SHIFT. WILL PASS SHIFT REPORT TO ONCOMING NIGHT NURSE.
--- NOTE | 2017-06-26 19:15 | NUR ---
START OF SHIFT NOTE : Pt was admitted to [facility] [place] on 06/23/2017 for ETOH, benzo, opiate dependence and methamphetamine abuse. Pt has a PMHx of anxiety and is on PO bactrim for a possible abscess to his right forearm. Dr Hall stated that he would like to perform an I&D on 06/27/2017. Pt is a full code, on a regular diet and reports and allergy to psyllium. Pt started a 5 day ativan and a 5 day subutex taper on 06/24/2017. Pt is currently in the activity room., pt has no complaints at this time. All safety measures in the place by hospital policy: Call light within reach; bed locked and in the lowest position; padded rails up x 2. Will continue to monitor and offer help.
[2017-06-26 20:00] VITALS: BP 109/64
[2017-06-27] MEDS: KETOROLAC TROMETHAMINE 30 MG INJ IM PRN (02:07)
[2017-06-27 04:00] VITALS: BP 109/64
--- NOTE | 2017-06-27 06:50 | NUR ---
END OF SHIFT NOTE : Pt was admitted to [facility] [place] on 06/23/2017 for ETOH, benzo, opiate dependence and methamphetamine abuse. Pt has a PMHx of anxiety and is on PO bactrim for a possible abscess to his right forearm. Dr Hall stated that he would like to perform an I&D on 06/27/2017. Pt is a full code, on a regular diet and reports and allergy to psyllium. Pt started a 5 day ativan and a 5 day subutex taper on 06/24/2017. Pt remains compliant with the treatment plan. PRN TORADOL IM given during my shift. V/S remain WNL. RR=16, even and unlabored, lungs clear upon auscultation, abdomen soft and non- distended. Pt denies nausea, vomiting and diarrhea. LAST CIWA=3 ,COWS= 4 at 0400 , PJGCHC=300 ml, voided x1 , slept 9 hours. Safety measures in place : bed on lowest position with side rails x2 up for safety, call light within reach. Will continue to monitor closely and offer help.
--- NOTE | 2017-06-27 07:30 | NUR ---
Start of Shift User Support Analyst received report on 32 year old male admitted on 06/23/17 for ETOH, and IV Heroin and Methamphetamine detoxification. Pt reports an allergy to Psyllium and is a full code. Reports a PMH of anxiety, with shoulder surgery reported. No history of seizures noted. Pt has an abscess on right fare-arm and is waiting to have an I&D performed. Pt currently on a 5 day Ativan and 5 day Subutex taper, tolerating well. Last COWS 4, CIWA 3 at 0400. Pt had Toradol administered for pain and slept 9 hours. User Support Analyst encounters pt resting with eyes closed, respiration even and unlabored. Rise and fall of chest noted. Bed in low position, wheels locked, side rails up x2 and call light within reach.
[2017-06-27 08:41] VITALS: BP 109/58
[2017-06-27] MEDS: MUPIROCIN 2% OINT 22 GM TUBE TP SCH ×2 (10:01→21:56)
[2017-06-27] MEDS: BACLOFEN 20 MG TABLET PO SCH ×3 (10:02→21:54)
[2017-06-27] MEDS: BUPRENORPHINE HCL 2 MG TAB.SUBL SL SCH ×3 (10:02→21:56)
[2017-06-27] MEDS: GABAPENTIN 300 MG CAPSULE PO SCH ×2 (10:02→15:30)
[2017-06-27] MEDS: FOLIC ACID 1 MG TABLET PO SCH (10:02)
[2017-06-27] MEDS: SULFAMETH/TRIMETH 800/160 MG TABLET PO SCH ×2 (10:03→21:54)
[2017-06-27] MEDS: LORAZEPAM 1 MG TABLET PO SCH ×3 (10:03→21:54)
[2017-06-27] MEDS: DICYCLOMINE HCL 20 MG TABLET PO SCH ×3 (10:03→21:54)
[2017-06-27] MEDS: THIAMINE HCL 100 MG TABLET PO SCH (10:03)
[2017-06-27] MEDS: MULTIVITAMINS,THERAPEUTIC TABLET PO SCH (10:03)
[2017-06-27] MEDS: LACTOBACILLUS RHAMNOSUS GG 1 EACH CAPSULE PO SCH ×2 (10:03→21:54)
[2017-06-27] MEDS ORDERED: LIDOCAINE 1%-EPI 1:200,000 MPF 30 ML VIAL MC PRN (10:30)
[2017-06-27] MEDS ORDERED: MISCELLANEOUS MED XX PRN (10:30)
[2017-06-27 12:27] VITALS: BP 90/52
[2017-06-27 16:50] VITALS: BP 108/60
--- NOTE | 2017-06-27 18:57 | NUR ---
End of Shift S Iron Worker provided report on 32 year old male admitted on 06/23/17 for ETOH, and IV Heroin and Methamphetamine detoxification, with no further comments, questions or concerns voiced. Pt reports an allergy to Psyllium and is a full code. Reports a PMH of anxiety, with shoulder surgery reported. No history of seizures noted. Pt has an abscess on right fare-arm and is waiting to have an I&D performed. Pt currently on a 5 day Ativan and 5 day Subutex taper, tolerating well. Last COWS 5, CIWA 3 at 1600. Pt with no PRN medication administered. Bed in low position, wheels locked, side rails up x2 and call light within reach.
--- NOTE | 2017-06-27 19:15 | NUR ---
START OF SHIFT NOTE : Pt was admitted to [facility] [place] on 06/23/2017 for ETOH, benzo, opiate dependence and methamphetamine abuse. Pt has a PMHx of anxiety and is on PO bactrim for abscess to his right forearm. Dr Hall stated that he would like to perform an I&D on 06/28/2017. Pt is a full code, on a regular diet and reports and allergy to psyllium. Pt started a 5 day ativan and a 5 day subutex taper on 06/24/2017. Pt is resting in his room, pt has no complaints at this time. All safety measures in the place by hospital policy: Call light within reach; bed locked and in the lowest position; padded rails up x 2. Will continue to monitor and offer help.
[2017-06-27 20:00] VITALS: BP 103/70
[2017-06-27] MEDS: GABAPENTIN 400 MG CAPSULE PO SCH (21:55)
--- NOTE | 2017-06-27 22:30 | NUR ---
performs I&D on the right FA abcess performs I&D on the right FA abcess, instructions for PRN dressing change given (see order), wound dressing swap sent to the lab.
--- NOTE | 2017-06-28 06:53 | NUR ---
END OF SHIFT NOTE : Pt was admitted to [facility] [place] on 06/23/2017 for ETOH, benzo, opiate dependence and methamphetamine abuse. Pt has a PMHx of anxiety and is on PO bactrim for abscess to his right forearm. Dr Hall stated that he would like to perform an I&D on 06/28/2017. Pt is a full code, on a regular diet and reports and allergy to psyllium. Pt started a 5 day ativan and a 5 day subutex taper on 06/24/2017. performs I&D on the right FA abscess at 22:30, instructions for PRN dressing change given (see order),wound dressing swap sent to the lab. Pt remains compliant with the treatment plan. PRN TORADOL x1 given during my shift. V/S remain WNL. RR=16, even and unlabored, lungs clear upon auscultation, abdomen soft and non- distended. Pt denies nausea, vomiting and diarrhea. LAST CIWA=3 ,COWS= 4 at 0400 , INTAKE= 1565 ml, voided x3 , slept 4 hours. Safety measures in place : bed on lowest position with side rails x2 up for safety, call light within reach. Will continue to monitor closely and offer help.
--- NOTE | 2017-06-28 08:10 | NUR ---
Start of Shift Logistics Engineer received report on 32 year old male admitted on 06/23/17 for ETOH, and IV Heroin and Methamphetamine detoxification. Pt reports an allergy to Psyllium and is a full code. Reports a PMH of anxiety, with shoulder surgery reported. No history of seizures noted. Pt had abscess of right forearm incised and drained last evening. Pt currently on a 5 day Ativan and 5 day Subutex taper, tolerating well. Last COWS 4, CIWA 3 at 0400. Pt had Toradol administered for pain and slept 4 hours. Logistics Engineer encounters pt in lying in bed with complaints of pain at the incision site. Pt is cooperative, although irritable and anxious. A/O x4 and able to make needs known. Bed in low position, wheels locked, side rails up x2 and call light within reach.
[2017-06-28 08:37] VITALS: BP 95/58
[2017-06-28] MEDS ORDERED: SODIUM HYPOCHLORITE 0.125% 473 ML BOTTLE TP PRN (09:00)
[2017-06-28] MEDS: LORAZEPAM 1 MG TABLET PO SCH ×2 (09:20→21:35)
[2017-06-28] MEDS: BACLOFEN 20 MG TABLET PO SCH ×3 (09:21→21:35)
[2017-06-28] MEDS: KETOROLAC TROMETHAMINE 30 MG INJ IM PRN ×3 (09:21→22:27)
[2017-06-28] MEDS: LACTOBACILLUS RHAMNOSUS GG 1 EACH CAPSULE PO SCH ×2 (09:21→21:35)
[2017-06-28] MEDS: BUPRENORPHINE HCL 2 MG TAB.SUBL SL SCH ×2 (09:21→21:35)
[2017-06-28] MEDS: GABAPENTIN 300 MG CAPSULE PO SCH ×2 (09:21→15:07)
[2017-06-28] MEDS: FOLIC ACID 1 MG TABLET PO SCH (09:21)
[2017-06-28] MEDS: DICYCLOMINE HCL 20 MG TABLET PO SCH ×3 (09:21→21:35)
[2017-06-28] MEDS: MULTIVITAMINS,THERAPEUTIC TABLET PO SCH (09:21)
--- NOTE | 2017-06-28 09:21 | NUR ---
PRN Toradol Pt complain of pain 10/10 at point of incision on RFA. Pt requests Toradol, hand sign writer administered per order and pt tolerated well. Will continue to monitor, support and encourage according to plan of care.
[2017-06-28] MEDS: MUPIROCIN 2% OINT 22 GM TUBE TP SCH ×2 (09:22→21:40)
[2017-06-28] MEDS: THIAMINE HCL 100 MG TABLET PO SCH (09:47)
[2017-06-28] MEDS: SULFAMETH/TRIMETH 800/160 MG TABLET PO SCH ×2 (09:47→21:35)
--- NOTE | 2017-06-28 10:21 | NUR ---
PRN Re-assessment Pt visible on the unit, social with peers and staff. Endorses relief from pain, " feeling better." Will continue to monitor, support and encourage according to plan of care.
[2017-06-28 12:28] VITALS: BP 100/64
[2017-06-28 16:45] VITALS: BP 82/48
--- NOTE | 2017-06-28 16:45 | NUR ---
Dressing change Pt bandage changed per orders, pt tolerated well. Picture of wound taken and placed in chart. Will continue to monitor, support and encourage according to plan of care.
--- NOTE | 2017-06-28 18:54 | NUR ---
End of Shift Commercial Artist Lettering provided report on 32 year old male admitted on 06/23/17 for ETOH, and IV Heroin and Methamphetamine detoxification, with no further comments, questions or concerns voiced. Pt reports an allergy to Psyllium and is a full code. Reports a PMH of anxiety, with shoulder surgery reported. No history of seizures noted. Pt has an abscess on right fore-arm that was incised last evening. Pt complains of pain, endorsed relief from PRN Toradol IM. Pt tolerated dressing change well. Pt currently on a 5 day Ativan and 5 day Subutex taper, tolerating well. Last COWS 4, CIWA 4 at 1600. Pt is A/O x4, calm and cooperative with creative services writer, but was placed on room restrictions d/t romanticizing drug use. Bed in low position, wheels locked, side rails up x2 and call light within reach.
--- NOTE | 2017-06-28 19:10 | NUR ---
Start of shift note Received report from day shift nurse. Pt is a 32 yo male, A+Ox4, presenting to [facility] for ETOH/Benzo/Opiate/Meth dependence. Pt has Allergies to Psyllium, is on Full Code status, and on Regular diet. Pt is on Fall precautions. Pt has HX of Anxiety, Right shoulder SX, and Right Anterior Fore arm abscess with I&D. Pt is on 5 day Ativan and 5 day Subutex tapers, tolerated well. No s/s of distress noted at this time. Respirations even and unlabored. Will continue to monitor.
[2017-06-28 20:11] VITALS: BP 98/61
[2017-06-28] MEDS: GABAPENTIN 400 MG CAPSULE PO SCH (21:35)
--- NOTE | 2017-06-28 22:27 | NUR ---
PRN Toradol Pt c/o Right fore arm pain 07/02 and requested for PRN Toradol. Medication given and tolerated well. Will reassess within 1 HR. Will continue to monitor.
--- NOTE | 2017-06-28 23:25 | NUR ---
PRN Toradol Reassessment Medication effective. No s/s of ASE/distress noted at this time. Respirations even and unlabored. Will continue to monitor.
[2017-06-29 00:11] VITALS: BP 97/62
[2017-06-29 04:47] VITALS: BP 96/61
--- NOTE | 2017-06-29 07:00 | NUR ---
End of shift note Pt is a 32 yo male, A+Ox4, presenting to [facility] for ETOH/Benzo/Opiate/Meth dependence. Pt has Allergies to Psyllium, is on Full Code status, and on Regular diet. Pt is on Fall precautions. Pt has HX of Anxiety, Right shoulder SX, and Right Anterior Fore arm abscess with I&D. Pt is on 5 day Ativan and 5 day Subutex tapers, tolerated well. Pt was given PRN Toradol @2227. Pt slept for a total of 6 HRS. Last COWS: 2 and Last CIWA: 3 @0400. No s/s of distress noted at this time. Respirations even and unlabored. Will endorse to day shift nurse.
--- NOTE | 2017-06-29 07:03 | NUR ---
Start of Shift Endorsement received from nightshift nurse. Pt is a 32 y/o male admitted for Heroin, meth and alcohol dependence. Pt is on a 5 day Ativan and 5 day Subutex taper. Pt is tolerating the taper AEB CIWA 3, COWS 2 at 0400. Pt received PRN Toradol for severe arm pain. PT is scheduled to complete both taper today 06/29/17. Pt reports sleeping 6 hours. Pt presents with a wound on right forearm. VS WNL. Full Code. PT is alert and oriented x4. Pt is in STABLE condition at this time. Remains compliant with medication and diet regimen. All needs have been met, All safety measures in place per hospital policy. Bed in lowest position, side rails up x2, call-light within reach. Will continue to monitor
[2017-06-29 08:00] VITALS: BP 102/72
[2017-06-29] MEDS: BACLOFEN 20 MG TABLET PO SCH ×3 (08:58→21:25)
[2017-06-29] MEDS: GABAPENTIN 300 MG CAPSULE PO SCH ×2 (08:58→14:51)
[2017-06-29] MEDS: LACTOBACILLUS RHAMNOSUS GG 1 EACH CAPSULE PO SCH ×2 (08:58→21:25)
[2017-06-29] MEDS: MULTIVITAMINS,THERAPEUTIC TABLET PO SCH (08:58)
[2017-06-29] MEDS: DICYCLOMINE HCL 20 MG TABLET PO SCH ×3 (08:58→21:25)
[2017-06-29] MEDS: THIAMINE HCL 100 MG TABLET PO SCH (08:58)
[2017-06-29] MEDS: FOLIC ACID 1 MG TABLET PO SCH (08:58)
[2017-06-29] MEDS: SULFAMETH/TRIMETH 800/160 MG TABLET PO SCH ×2 (08:58→21:26)
[2017-06-29] MEDS: MUPIROCIN 2% OINT 22 GM TUBE TP SCH ×2 (08:58→21:26)
[2017-06-29] MEDS ORDERED: BUPRENORPHINE HCL 2 MG TAB.SUBL SL SCH (09:00)
[2017-06-29] MEDS: KETOROLAC TROMETHAMINE 30 MG INJ IM PRN ×2 (09:25→21:27)
[2017-06-29 12:00] VITALS: BP 108/75
[2017-06-29] MEDS ORDERED: KETOROLAC TROMETHAMINE 30 MG INJ IM ONE (12:15)
[2017-06-29] MEDS ORDERED: GABA-534 PO (15:54)
[2017-06-29] MEDS ORDERED: DICY20TA28 PO (15:54)
[2017-06-29] MEDS ORDERED: DIPH50CA37 PO (15:54)
[2017-06-29] MEDS ORDERED: SULF1TAB3 PO (15:54)
[2017-06-29] MEDS ORDERED: LACT1CAP57 PO (15:54)
[2017-06-29] MEDS ORDERED: IBUP-1955 PO (15:54)
[2017-06-29] MEDS ORDERED: BACL20TA PO (15:54)
[2017-06-29 16:00] VITALS: BP 112/79
--- NOTE | 2017-06-29 19:17 | NUR ---
End of Shift Endorsement given to nightshift nurse. Pt is a 32 y/o male admitted for Heroin, meth and alcohol dependence. Pt is on a 5 day Ativan and 5 day Subutex taper. Pt is tolerating the taper AEB CIWA 3, COWS 3 at 1600. Pt received PRN Toradol x2 for severe arm pain. PT has completed both tapers and has been scheduled to be discharged on 06/30/17. All discharge education has been provided to the patient. Pt reports readiness for discharge. Pt has participated in groups and activities. Intake: 1706ml, Void x3, BM x1. Wound care has been performed on right forearm. Pt has been provided education on diet regimen and high protein diet . VS WNL. Intake: 2100ml, Void x3, BM x1. Full Code. PT is alert and oriented x4. Pt is in STABLE condition at this time. Remains compliant with medication and diet regimen. All needs have been met, All safety measures in place per hospital policy. Bed in lowest position, side rails up x2, call-light within reach. Will continue to monitor
--- NOTE | 2017-06-29 19:18 | NUR ---
Start of shift note Received report from day shift nurse. Pt is a 32 yo male, A+Ox4, presenting to [facility] for ETOH/Benzo/Opiate/Meth dependence. Pt has Allergies to Psyllium, is on Full Code status, and on Regular diet. Pt is on Fall precautions. Pt has HX of Anxiety, Right shoulder SX, and Right Anterior Fore arm abscess with I&D. Pt has completed 5 day Ativan and 5 day Subutex tapers, tolerated well, and is due for discharge tomorrow. No s/s of distress noted at this time. Respirations even and unlabored. Will continue to monitor.
[2017-06-29 20:10] VITALS: BP 118/76
[2017-06-29] MEDS: GABAPENTIN 400 MG CAPSULE PO SCH (21:26)
--- NOTE | 2017-06-29 21:27 | NUR ---
PRN Toradol Pt c/o Right fore arm pain 06/01 and requested for PRN Toradol. Medication given and tolerated well. Will reassess within 1 HR. Will continue to monitor.
--- NOTE | 2017-06-29 22:20 | NUR ---
PRN Toradol Reassessment Medication effective. Pt expresses reduction in pain to 4/10. No s/s of ASE/distress noted at this time. Respirations even and unlabored. Will continue to monitor.
[2017-06-30 00:12] VITALS: BP 122/73
[2017-06-30 04:07] VITALS: BP 119/71
--- NOTE | 2017-06-30 07:00 | NUR ---
End of shift note Pt is a 32 yo male, A+Ox4, presenting to [facility] for ETOH/Benzo/Opiate/Meth dependence. Pt has Allergies to Psyllium, is on Full Code status, and on Regular diet. Pt is on Fall precautions. Pt has HX of Anxiety, Right shoulder SX, and Right Anterior Fore arm abscess with I&D. Pt has completed 5 day Ativan and 5 day Subutex tapers, tolerated well, and is due for discharge today. Pt was given PRN Toradol @2126. Pt slept for a total of 6 HRS. Last COWS: 2 and Last CIWA: 2 @0400. No s/s of distress noted at this time. Respirations even and unlabored. Will endorse to day shift nurse.
--- NOTE | 2017-06-30 08:00 | NUR ---
START OF SHIFT Rcvd client from ongoing nurse, client is in room, he is a/o x4, he presents with anxious mood, flat affect. He reports fatigue and abdominal cramps. Client denies any SI/HI. Client is a 32 yo male admitted for withdrawal from alcohol, alprazolam, and heroin. He completed 5 day Ativan/ Subutex taper, tolerated well. Last COWS 2/CIWA 2 @ 0400. R forearm with incision wound sp I & D, dressing intact. Client is on PO antibiotic therapy Bactrim DS Q12H for infection, tolerating well. PRN Toradol 30mg IM for pain, noted effective. Client slept 6 hrs. She reports allergy to psyllium, full code, regular diet. Client denies any history of withdrawal-induced seizure. He is on seizure precautions. Call light within reach. Side rails up x2, bed locked and in low position.
[2017-06-30 08:46] VITALS: BP 118/63
[2017-06-30] MEDS: FOLIC ACID 1 MG TABLET PO SCH (08:49)
[2017-06-30] MEDS: LACTOBACILLUS RHAMNOSUS GG 1 EACH CAPSULE PO SCH (08:49)
[2017-06-30] MEDS: DICYCLOMINE HCL 20 MG TABLET PO SCH (08:49)
[2017-06-30] MEDS: SULFAMETH/TRIMETH 800/160 MG TABLET PO SCH (08:49)
[2017-06-30] MEDS: MULTIVITAMINS,THERAPEUTIC TABLET PO SCH (08:49)
[2017-06-30] MEDS: BACLOFEN 20 MG TABLET PO SCH (08:49)
[2017-06-30] MEDS: THIAMINE HCL 100 MG TABLET PO SCH (08:49)
[2017-06-30] MEDS: GABAPENTIN 300 MG CAPSULE PO SCH (08:49)
[2017-06-30] MEDS: KETOROLAC TROMETHAMINE 30 MG INJ IM PRN (08:50)
--- NOTE | 2017-06-30 08:50 | NUR ---
PRN Toradol 30mg Inj IM to R buttock for pain on R forearm 06/01, will continue to monitor.
--- NOTE | 2017-06-30 09:20 | NUR ---
Reassessment PRN Toradol 30mg Inj client reports pain 2/10 on R forearm, but tolerable. Will continue to monitor.
[2017-06-30] MEDS: MUPIROCIN 2% OINT 22 GM TUBE TP SCH (09:30)
--- NOTE | 2017-06-30 10:30 | NUR ---
Discharge note Client was admitted for withdrawal from alcohol, alprazolam, and heroin. Client has a recent COWS of 2/CIWA 2. Client VS are WNL. Client LBM was 06/30/17. Client denies any SI/HI. Client verbalized his understanding of the discharge instructions. Client has no complaints at this time. Client discharge instructions, prescriptions, medications and all belongings returned to pt. All needs addressed at this time. Client ID band removed, he ambulated off of unit, client left facility via [facility].
== END 2017-06-30 10:30 | disposition other institution (70) | DRG 895 ==
LOC: SRC 18:54
PROVIDERS: ADMIT Internal Medicine; ATTEND Internal Medicine
PROC: HZ2ZZZZ Detoxification Services for Substance Abuse Treatment (ICD-10-PCS; principal; 2017-06-23)
PROC: HZ41ZZZ Group Counseling for Substance Abuse Treatment, Behavioral (ICD-10-PCS; 2017-06-25)
PROC: HZ31ZZZ Individual Counseling for Substance Abuse Treatment, Behavioral (ICD-10-PCS; 2017-06-26)
PROC: 0J9D3ZZ Drainage of Right Upper Arm Subcutaneous Tissue and Fascia, Percutaneous Approach (ICD-10-PCS; 2017-06-27)
DX: F11.23 Opioid dependence with withdrawal (principal); D69.6 Thrombocytopenia, unspecified; L03.113 Cellulitis of right upper limb; L02.413 Cutaneous abscess of right upper limb; F13.230 Sedative, hypnotic or anxiolytic dependence with withdrawal, uncomplicated; F15.23 Other stimulant dependence with withdrawal; F10.230 Alcohol dependence with withdrawal, uncomplicated; Y90.9 Presence of alcohol in blood, level not specified; F41.9 Anxiety disorder, unspecified; S41.131S Puncture wound without foreign body of right upper arm, sequela; B95.62 Methicillin resistant Staphylococcus aureus infection as the cause of diseases classified elsewhere; X78.8XXS Intentional self-harm by other sharp object, sequela; F17.210 Nicotine dependence, cigarettes, uncomplicated; F32.9 Major depressive disorder, single episode, unspecified
CPT/HCPCS: 36415; 70030-TC; 80307; 80324; 80346; 80361; 83735; 85025; 86580; 86592; 86705; 86803; 87070; 87340; 87806; A4663; G0480; J1885; J3411; J3490; Q0162; Q0163